=== PATIENT | female | born 1950 | race Caucasian/White ===

== ENCOUNTER 2018-11-03 14:02 | Emergency (ER) | payer MEDICARE, OTHER, SELFPAY ==
[2018-11-03 14:10] VITALS: BP 128/81; PULSE 88; RESP 18; TEMP 37.1; O2SAT 100
--- NOTE | 2018-11-03 16:42 | ED.NAVMDI ---
HPI - Nausea/Vomiting/Diarrhea <Damaris Meza PA-C - Last Filed: 11/03/18 21:51> General Chief complaint: Nausea/Vomiting/Diarrhea Stated complaint: SHINGLES WEEK AGO,PAIN HASN'T GONE AWAY Time Seen by Provider: 11/03/18 16:49 Source: patient Mode of arrival: ambulatory Limitations: no limitations History of Present Illness HPI Narrative: This 68-year-old female comes to ED secondary to left-sided shingles pain. She states that she developed left-sided upper abdomen and flank area pain 10 days ago, then rash developed 3 days later. She saw her PCP and was prescribed Valtrex of which she has 2 doses left. She states that she developed nausea on that and was prescribed Zofran she states that this helps somewhat, she has not had any vomiting, but she still has intermittent nausea. She states she has also been having occasional diarrhea and episodes where she will feel a little bit lightheaded which she thinks are related to the symptoms. She has not passed out. She denies any chest pain, dyspnea, new pain or swelling in the extremities. She has not had fever. She states there is a time correlation with the symptoms and being on the antiviral. She states that she came in today due to having persistent pain despite the rash getting better with antiviral. family history noncontributory Related Data Home Medications Medication Instructions Recorded Confirmed atorvastatin 10 mg PO BEDTIME 11/03/18 11/03/18 ipratropium bromide 2 spray INTRANASAL BID 11/03/18 11/03/18 ondansetron 4 mg TRANSLINGUAL PRN PRN 11/03/18 11/03/18 sumatriptan succinate 25 mg PO PRN PRN 11/03/18 11/03/18 valacyclovir 1 g PO [id number] 11/03/18 Previous Rx's Medication Instructions Recorded gabapentin 300 mg PO Q8H #60 cap 11/03/18 Allergies Allergy/AdvReac Type Severity Reaction Status Date / Time Sulfa (Sulfonamide Allergy Verified 11/03/18 14:12 Antibiotics) Review of Systems <Damaris Meza PA-C - Last Filed: 11/03/18 21:51> Review of Systems ROS Unobtainable: All systems reviewed & are unremarkable except as noted in HPI and below PFSH <Damaris Meza PA-C - Last Filed: 11/03/18 21:51> Medical History Elevated cholesterol (Chronic) History of migraine headaches (Chronic) History of head and neck cancer (Resolved) History of oral cancer (Resolved) Surgical History History of radical neck dissection (Resolved) Social History Smoking Status: Never smoker Social History Smoking Status: Never smoker Exam <Damaris Meza PA-C - Last Filed: 11/03/18 21:51> Narrative Exam Narrative: GENERAL APPEARANCE: Patient sitting comfortably, in no distress. HEENT: PERRL, EOMI LUNGS: Clear to auscultation bilaterally. HEART: Rate and rhythm regular without murmur, normal S1 and S2, no S3 or S4. ABDOMEN: soft, nontender, nondistended, +bowel sounds x4 quadrants DERMATOLOGIC: Erythematous patches and dry papules in the left T12 dermatomal distribution, 1 vesicle visible. No lesions elsewhere EXTREMITIES: No edema, no calf tenderness NEUROLOGIC: patient is alert and oriented with normal speech and coordination Initial Vital Signs Initial Vital Signs: Vital Signs Temperature 98.8 F 11/03/18 14:10 Pulse Rate 88 11/03/18 14:10 Respiratory Rate 18 11/03/18 14:10 Blood Pressure 128/81 11/03/18 14:10 Pulse Oximetry 100 11/03/18 14:10 <Kay Celestin DO - Last Filed: 11/06/18 09:19> Initial Vital Signs Initial Vital Signs: Vital Signs Temperature 98.8 F 11/03/18 14:10 Pulse Rate 88 11/03/18 14:10 Respiratory Rate 18 11/03/18 14:10 Blood Pressure 128/81 11/03/18 14:10 Pulse Oximetry 100 11/03/18 14:10 Course <Damaris Meza PA-C - Last Filed: 11/03/18 21:51> Vital Signs - 8 hr 11/03/18 14:10 11/03/18 17:23 Temperature 98.8 F Pulse Rate 88 72 Respiratory Rate 18 16 Blood Pressure 128/81 124/68 Pulse Oximetry 100 99 <DO Con Rubio Last Filed: 11/06/18 09:19> Vital Signs - 8 hr 11/03/18 14:10 11/03/18 17:23 Temperature 98.8 F Pulse Rate 88 72 Respiratory Rate 18 16 Blood Pressure 128/81 124/68 Pulse Oximetry 100 99 Discharge Plan Departure Patient Disposition: Home Clinical Impression: Nausea Shingles Qualifiers: Herpes zoster complications: without complications Qualified Code(s): B02.9 - Zoster without complications Discharge Date/Time: 11/03/18 17:23 Interventions: ED Discharge Assessment Last Done: 11/03/18 17:23 Instructions: DI for Shingles, DI for Nausea -- Adult Activity Restrictions/Additional Instructions: please continue your shingles medicine since you only have a couple more doses to take. Take the antinausea medicine that you would prescribed about an hour before. try to eat a small amount of bland food (i.e. a few crackers, applesauce, or a banana for example) every hour or 2 to keep a little food in your stomach as this can help with the nausea, and drink plenty of clear fluids. you can take ertj-jat-ohraayl Imodium if needed for loose stools. I suspect the symptoms will resolve within about 24 hr after finishing your antiviral medication. You can continue taking or Tylenol and ibuprofen, but in addition add the gabapentin that I have prescribed for you, 1 cap every 8 hr. You can increase to 2 at bedtime if needed. Please make sure you follow-up with your PCP in the next few days to see if this is helping you and see whether the dose needs to be adjusted or whether you need other pain medicines added. It does look like the rash is improving. Please return as we talked about if you have any acutely worsening symptoms, or new symptoms such as protracted vomiting, or feeling more weak or dizzy. Prescriptions: New gabapentin 300 mg capsule 300 mg PO Q8H Qty: 60 RF: 0 No Action atorvastatin 10 mg tablet 10 mg PO BEDTIME RF: 0 valacyclovir 1 gram tablet 1 g PO [id number] RF: 0 sumatriptan succinate 25 mg tablet 25 mg PO PRN PRN (Reason: Migraine Headache) RF: 0 ondansetron 4 mg tablet,disintegrating 4 mg Translingual PRN PRN (Reason: Nausea And Vomiting) RF: 0 ipratropium bromide 0.03 % spray,non-aerosol 2 spray Intranasal BID RF: 0 Referrals: Jason Traore MD [Primary Care Provider] - <Kay Celestin DO - Last Filed: 11/06/18 09:19> Cosign ED Attending Cosignature Attestation: I was immediately available in the department for consultation. Documentation has been reviewed. I agree with assessment and plan.
--- NOTE | 2018-11-03 17:21 | PC.NURSE ---
Patient reports nausea which she thinks is associated to her antiviral medications she is taking for her shingles. Patient having ongoing nerve pain.
[2018-11-03 17:23] VITALS: BP 124/68; PULSE 72; RESP 16; O2SAT 99
== END 2018-11-03 17:23 | disposition home or self-care (01) ==
PROVIDERS: Emergency Provider Internal Medicine; PCP Family Medicine
DX: R11.0 Nausea (principal); B02.9 Zoster without complications
CPT/HCPCS: 99282

== ENCOUNTER → 2019-06-06 15:12 | Outpatient (ROUT) | payer SELFPAY ==
[2019-06-07 00:31] LABS: INR 2.3 (0.9-1.3); Prothrombin Time 26.8 SECONDS (10.1-12.7)
== END ==
PROVIDERS: PCP Family Medicine; Visit Provider Internal Medicine
DX: I48.91 Unspecified atrial fibrillation (principal); Z79.899 Other long term (current) drug therapy
CPT/HCPCS: 85610

== ENCOUNTER → 2019-06-15 10:17 | Outpatient (ROUT) | payer MEDICARE, OTHER, SELFPAY ==
[2019-06-15 10:31] LABS: INR 1.4 (0.9-1.3); Prothrombin Time 16.3 SECONDS (10.1-12.7)
== END ==
PROVIDERS: PCP Family Medicine; Visit Provider Internal Medicine
DX: E78.5 Hyperlipidemia, unspecified (principal)
CPT/HCPCS: 85610

== ENCOUNTER → 2019-08-24 09:07 | Outpatient (CLI) | payer MEDICARE, OTHER, SELFPAY ==
--- NOTE | 2019-08-24 | DI.ECHO.S_ITS ---
[facility] +---------+ : : [address] : : : : [id number] : : : : Phone: [phone]+ Echocardiogram Report + + :Name: HAYLEE RASMUSSEN Study Date: 08/24/2019 Height: 66 in : :[facility] Exam Location: [facility] Weight: 121 lb : : Gender: Female BSA: 1.6 m2 : :: 1950 Age: 69 yrs BP: 112/62 mmHg: :Reason For Study: Atrial Fibrillation : :Ordering Physician: Matias : :Genevieve Iraheta Performed By: Ileana Ann : :Referring: MATIAS IRAHETA : + + Interpretation Summary 1) Normal left ventricular thickness, size, and systolic function (EF about 55%). 2) The right ventricle is normal size. Right ventricular systolic function is mildly reduced. 3) There is a prosthetic aortic valve that opens well and has expected gradient across it (mean gradient 3.5mmHg). 4) Linear echoes with the aorta are suggestive of dissection of the descending aorta. 5) No prior Echo available for comparison. Procedure: A two-dimensional transthoracic echocardiogram with color flow and Doppler was performed. The study quality was technically adequate. There is no prior echocardiogram noted for this patient. Some imaging windows were difficult to obtain due to patient body habitus and recent surgery. The patient was in normal sinus rhythm during the exam. Left Ventricle: The left ventricle is normal in size. Left ventricular wall thickness is normal. Left ventricular ejection fraction is estimated to be 55 +/- 5%. Septal motion is consistent with post-operative state. Right Ventricle: The right ventricle is normal size. Right ventricular systolic function is mildly reduced. Atria: The left atrium is mildly dilated. Right atrial size is normal. The interatrial septum is intact with no evidence for an atrial septal defect. Mitral Valve: The mitral valve is normal in structure and function. There is trace mitral regurgitation. Aortic Valve: There is a prosthetic aortic valve. The gradients through the prosthetic aortic valve are within the normal range for this type of valve. No aortic regurgitation is present. Tricuspid Valve: The tricuspid valve is normal in structure and function. There is mild tricuspid regurgitation. The right ventricular systolic pressure is estimated to be at least 24 mmHg based on an estimated right atrial pressure of 3 mm Hg. Pulmonic Valve: The pulmonic valve is not well seen, but is grossly normal. There is a trace or physiologic amount of pulmonic regurgitation. Great Vessels: The ascending aorta could not be visualized. The aortic arch is normal in size. Aortic dissection is known per medical record. Linear echoes with the aorta are suggestive of dissection of the descending aorta. The IVC is of normal diameter and collapses greater than 50% with a sniff. This suggests a low right atrial pressure of 3 mm Hg. Pericardium/ Pleura There is no pericardial effusion. There is an anterior echo-free space consistent with a fat pad. There is no pleural effusion. MMode/2D Measurements & Calculations LVIDd: 4.2 cm LVOT diam: 1.9 cm LVIDs: 3.1 cm Ao Arch Diam (Prox Trans): 2.5 cm FS: 27.6 % IVSd: 0.83 cm LVPWd: 1.1 cm LV ortega. diameter/BSA (cm/m^2): 2.6 LV sys. diameter/BSA (cm/m^2): 1.9 LA A2 area: 17.0 cm2 RA long axis: 4.2 cm LA A4 area: 18.6 cm2 RA area: 11.9 cm2 LA length (vol): 4.7 cm RA vol: 28.6 ml LA vol: 57.1 ml RA : 17.7 ml/m2 LA vol index: 35.4 ml/m2 TAPSE: 1.5 cm Doppler Measurements & Calculations Ao V2 max: 135.9 cm/sec LVOT Max Miles: 86.3 cm/sec Ao V2 mean: 88.2 cm/sec LV V1 max P.0 mmHg Ao max P.4 mmHg LV V1 VTI: 15.8 cm Ao mean P.5 mmHg DANA(I,D): 2.2 cm2 Ao V2 VTI: 21.5 cm DANA(V,D): 1.9 cm2 sev ratio: 0.74 DANA indexed to BSA (cm^2/m^2): 1.4 MV E max miles: 53.4 cm/sec TR max miles: 227.4 cm/sec MV A max miles: 69.7 cm/sec TR max P.7 mmHg MV E/A: 0.77 PA V2 max: 69.5 cm/sec MV dec time: 0.20 sec PA V2 mean: 51.6 cm/sec PA mean P.1 mmHg PA pr(Accel): 45.7 mmHg SV(LVOT): 47.1 ml Reading Physician:05:04 PM
== END ==
PROVIDERS: PCP Family Medicine; Visit Provider Internal Medicine Cardiovascular Disease
DX: I07.1 Rheumatic tricuspid insufficiency (principal); I48.19 Other persistent atrial fibrillation; Z95.2 Presence of prosthetic heart valve
CPT/HCPCS: 93306

== ENCOUNTER 2019-08-31 15:30 | Outpatient (RCR) | payer MEDICARE, OTHER, SELFPAY ==
--- NOTE | 2019-07-09 13:48 | ST.IPCSEOM ---
Visit Care Team Role Provider Type Jason Traore MD Attending Provider Non-Staff Primary Care Provider Specialty: Medical Address: [address] [place] [address] [address], [place], [address] Email: Current Diagnoses Malignant neoplasm of tongue, unspecified (07/06/19) Past Medical History (Last Updated 11/03/18 @ 17:17 by Damaris Meza PA-C) Elevated cholesterol (Chronic Medical) History of head and neck cancer (Resolved Medical) History of migraine headaches (Chronic Medical) History of oral cancer (Resolved Medical) Speech-Language Pathology Swallow Evaluation MA[employer] Clinical Swallow Evaluation Start: 07/08/19 17:23 Freq: Status: Active Protocol: Document 07/06/19 17:24 LNK (Rec: 07/08/19 18:04 LNK [email or web address]) Clinical Swallow Evaluation Session Time Visit Start Time 14:30 Visit Stop Time 15:30 Total Visit Minutes 60 Visit Information Plan of Care Dates 07/06/19-10/06/[address] Traore/Dr. Sesay Reason for Referral dysphagia Setting Assessment Location Outpatient Care Visit Type Note Type Initial Evaluation Next Note Type Next Note Type Treatment Note Patient Information Identification Type Name,Picture History Nicole Valenzuela was seen fora clinical swallowing examination at the referral of her physician, Dr. Traore. Little information was available via medical records. 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 Beginning in 2009, she had a small lesion removed from the left side of her tongue. In 2011, she had the left side of her tongue and lymph nodes removed secondary to cancer. She received radiation therapy to her neck and lymph nodes following her resection. She had proton radiation therapy for her thyroid. In 2016, she had thyroid cancer that required surgery. While in surgery, she had a heart attack requiring emergency surgery (05/09/19). Nicole reported that her left vocal fold was negatively impacted ( paralized?) during her procedure. Her vocal fold has been treated with injections to approximate the left vocal fold for voicing and/or swallowing. Following her thyroid surgery and the heart attack, Nicole had a Modified Barium Swallow Study on 05/18/19 , which she failed and on 05/22 she had a PEG tube placed. Nicole feels she has improved and would like to try to get back to PO intake. Subjective Observations Nicole remarked that she felt the MBS and PEG tube placement were premature. Evaluation Oral Phase Comments Pt presented with a small toungu which is limited in range of motion. Her dentition is natural and in good health and hygeine. OM assessment noted good labial, buccal and jaw strength. Her velopharynx appeared to be deep. Tongue ROM strength and speed were limited. Her speech was intelligible. She spoke slowly, with a hypernasal resonance. Pharyngeal Phase Comments PO intake was not attempted due to high risk for silent aspiration. Nicole reported that she has been sucking on ice chips at home with no coughing/choking. She was instructed to monitor for chest congestion and/or fever due to silent aspiration risk. Observations of her neck area revealed stiff and hard muscle and skin tissue secondary to the radiation therapies. Her neck ROM is limited. PT was recommended for myofacial release therapy for her neck area. Findings Impressions Nicole Valenzueal is highly motivated to eat again. Therapy with oropharyngeal exercises was initiated. Tongue base retraction and the Shaker technique were demonstrated and practiced as a starting point. These exercises are designed to aid in hyolaryngeal elevation and tongue base strength and ROM. Following 1-2 months of therapeutic exercises, a repeat MBS is recommended to determine safety for PO intake . Diet Recommendations Liquids Order NPO Treatment Plan Therapy Recommendations Weekly dysphagia therapy Dysphagia Goals Pt will regularly practice swallow exercises daily with repetitions at no less than 100/day. Pt will participate in safe swallow strategies for swallowing with trial PO. Referrals/Other Recommended Referrals Physical Therapy
--- NOTE | 2019-07-24 13:26 | ST.OPTN ---
Visit Care Team Role Provider Type Jason Traore MD Attending Provider Non-Staff Primary Care Provider Address: [address] [place] [address] [address], [place], [address] [employer] Treatment Note [employer] Treatment Note Start: 07/08/19 17:23 Freq: Status: Active Protocol: Document 07/24/19 13:02 LNK (Rec: 07/24/19 13:25 LNK [email or web address]) Speech Pathology Treatment Note Session Time Visit Start Time 11:30 Visit Stop Time 12:15 Total Visit Minutes 45 Visit Information Visit Number 2 Plan of Care Dates 07/06/19-10/06/19 Setting Treatment Setting Outpatient Care Visit Type Note Type Treatment Note Next Note Type Next Note Type Treatment Note General Information General Information Nicole Valenzuela was seen for a clinical swallowing examination at the referral of her physician, Dr. Traore. Little information was available via medical records. 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 Beginning in 2009, she had a small lesion removed from the left side of her tongue. In 2011, she had the left side of her tongue and lymph nodes removed secondary to cancer. She received radiation therapy to her neck and lymph nodes following her resection. She had proton radiation therapy for her thyroid. In 2016, she had thyroid cancer that required surgery. Nicole reported that her left vocal fold was negatively impacted ( paralized?) during her procedure. Her vocal fold has been treated with injections to approximate the left vocal fold for voicing and/or swallowing. Nicole had a Modified Barium Swallow Study on 05/18/19, which she failed and on 05/22/19 she had a PEG tube placed. Nicole feels she has improved and would like to try to get back to PO intake. [ End Subjective Identification Type Name Identification Reconciled With Intake Sheet Others Present Family Chief Complaint(s) Swallowing,Voice Rehab Expectation/Goals: Patient Goals To be able to eat Patient Knowledge/Awareness of [employer] Role Excellent in Treatment Objective Short Term Goals Nicole will practice swallowing/ linguapharyngeal exercises as directed in order to improve ROM, control, and strength as tolerated Nicole will practice vocal adduction exercises to assist in medialization of weak vocal fold and increase ROM of healthy vocal fold to achieve adduction and adequate airway protection. An MBSS will be performed to determine safety for PO intake and POC Shelter Goals Nicole will be able to safely tolerate PO intake without s/ sx of aspiration Treatment Activities Reviewed with Nicole her shaker and elevated tongue exercises. She c/o her neck aching, so the number of repetitions was reduced to as tolerated. Introduction of lingual exercises for tongue tip elevation and elevation of the posterior of the tongue. Initially to do these exercises tolerated. Recommended that she continue previous exercises. Will extend appointments out to every other week as progress is expected to be slow initially. Assessment Patient Response to Treatment Excellent Rehab Potential Fair Impairments Identified Dysphagia,Vocal Quality Reviewed with Patient Goals,Home Exercise Program Patient/Caregiver Understanding Excellent Plan Amount of Therapy Recommended Other Comment every other week Length of Session 45 Minutes Provided Patient/Caregiver Instruction Home Exercise Program, Questions/Concerns
--- NOTE | 2019-08-05 11:08 | ST.IPDYTX ---
Visit Care Team Role Provider Type Jason Traore MD Attending Provider Non-Staff Primary Care Provider Specialty: Medical Address: [address] [place] [address] [id number], [place], [address] Email: PROFESSIONAL SKATER Dysphagia Treatment PROFESSIONAL SKATER Dysphagia Treatment Start: 07/08/19 17:23 Freq: Status: Active Protocol: Document 07/23/19 10:34 LNK (Rec: 08/05/19 11:08 LNK [email or web address]) Dysphagia Treatment Session Time Visit Start Time 11:30 Visit Stop Time 12:15 Total Visit Minutes 45 Visit Information Visit Number 2 Plan of Care Dates 07/06/19-10/06/19 Setting Assessment Location Outpatient Care Visit Type Note Type Treatment Note Next Note Type Next Note Type Treatment Note Patient Information Identification Type Name,Picture Subjective Observations Nicole Valenzuela was seen for a clinical swallowing examination at the referral of her physician, Dr. Traore. Little information was available via medical records. 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 Beginning in 2009, she had a small lesion removed from the left side of her tongue. In 2011, she had the left side of her tongue and lymph nodes removed secondary to cancer. She received radiation therapy to her neck and lymph nodes following her resection. She had proton radiation therapy for her thyroid. In 2016, she had thyroid cancer that required surgery. 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 Her vocal fold has been treated with injections to approximate the left vocal fold for voicing and/or swallowing. Nicole had a Modified Barium Swallow Study on 05/18/19, which she failed and on 05/22/19 she had a PEG tube placed. Nicole feels she has improved and would like to try to get back to PO intake. Treatment Treatment Activities Reviewed with Nicole her shaker and elevated tongue exercises. She c/o her neck aching, so the number of repetitions was reduced to as tolerated. Introduction of lingual exercises for tongue tip elevation and elevation of the posterior of the tongue. Initially to do these exercises as tolerated. Recommended that she continue previous exercises. Will extend appointments out to every other week as progress is expected to be slow initially. [ End ] Assessment Patient Response to Treatment Excellent Rehab Potential Fair Treatment Plan Dysphagia Goals Nicole will practice swallowing/ linguapharyngeal exercises as directed in order to improve ROM, control, and strength as tolerated Nicole will practice vocal adduction exercises to assist in medialization of weak vocal fold and increase ROM of healthy vocal fold to achieve adduction and adequate airway protection. An MBSS will be performed to determine safety for PO intake and POC
--- NOTE | 2019-08-05 11:17 | ST.IPDYTX ---
Visit Care Team Role Provider Type Jason Traore MD Attending Provider Non-Staff Primary Care Provider Specialty: Medical Address: [address] [place] [address] [id number], [place], [address] Email: CARE DIRECTOR Dysphagia Treatment CARE DIRECTOR Dysphagia Treatment Start: 07/08/19 17:23 Freq: Status: Active Protocol: Document 08/05/19 11:10 LNK (Rec: 08/05/19 11:16 LNK [email or web address]) Dysphagia Treatment Session Time Visit Start Time 11:30 Visit Stop Time 12:15 Total Visit Minutes 45 Visit Information Visit Number 3 Plan of Care Dates 07/06/19-10/06/19 Setting Assessment Location Outpatient Care Visit Type Note Type Treatment Note Next Note Type Next Note Type Treatment Note Patient Information Identification Type Name Subjective Observations Nicole Valenzuela was seen for a clinical swallowing examination at the referral of her physician, Dr. Traore. Little information was available via medical records. 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 Beginning in 2009, she had a small lesion removed from the left side of her tongue. In 2011, she had the left side of her tongue and lymph nodes removed secondary to cancer. She received radiation therapy to her neck and lymph nodes following her resection. She had proton radiation therapy for her thyroid. In 2016, she had thyroid cancer that required surgery. 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 Her vocal fold has been treated with injections to approximate the left vocal fold for voicing and/or swallowing. Nicole had a Modified Barium Swallow Study on 05/18/19, which she failed and on 05/22/19 she had a PEG tube placed. Nicole feels she has improved and would like to try to get back to PO intake. Treatment Treatment Activities Reviewed with Nicole her shaker and elevated tongue exercises. She c/o her neck aching, so the number of repetitions was reduced to as tolerated. Introduction of lingual exercises for tongue tip elevation and elevation of the posterior of the tongue. Initially to do these exercises as tolerated. Recommended that she continue all exercises. Added a supersupraglottic swallow for small amounts of water (Todd water protocol). Trial with water resulted in 1/2 swallows resulting in strong cough. Will extend appointments out to every 4 week as progress is expected to be slow initially . [ End ] Assessment Patient Response to Treatment Excellent Rehab Potential Fair Assessment of Improvement Nicole Valenzuela is highly motivated to eat again. Therapy with oropharyngeal exercises was initiated. Tongue base retraction and the Shaker technique were demonstrated and practiced as a starting point. These exercises are designed to aid in hyolaryngeal elevation and tongue base strength and ROM. Following 1-2 months of therapeutic exercises, a repeat MBS is recommended to determine safety for PO intake . Diet Recommendations Liquids Order NPO Treatment Plan Therapy Recommendations Weekly dysphagia therapy Dysphagia Goals Nicole will practice swallowing/ linguapharyngeal exercises as directed in order to improve ROM, control, and strength as tolerated Nicole will practice vocal adduction exercises to assist in medialization of weak vocal fold and increase ROM of healthy vocal fold to achieve adduction and adequate airway protection. An MBSS will be performed to determine safety for PO intake and POC Referrals/Other Recommended Referrals Physical Therapy
--- NOTE | 2019-08-31 16:25 | ST.IPDYTX ---
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 Dysphagia Treatment [employer]IMBLE [employer] OPERATOR Dysphagia Treatment Start: 07/08/19 17:23 Freq: Status: Active Protocol: Document 08/31/19 15:18 LNK (Rec: 08/31/19 16:22 [email or web address]) Dysphagia Treatment Session Time Visit Start Time 13:30 Visit Stop Time 14:10 Total Visit Minutes 40 Visit Information Visit Number 4 Plan of Care Dates 09/09/19-12/09/19 Setting Assessment Location Outpatient Care Visit Type Note Type Progress Note Next Note Type Next Note Type Treatment Note Patient Information Identification Type Name Subjective Observations Nicole Valenzuela was seen for a clinical swallowing examination at the referral of her physician, Dr. Traore. Little information was available via medical records. 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 Beginning in 2009, she had a small lesion removed from the left side of her tongue. In 2011, she had the left side of her tongue and lymph nodes removed secondary to cancer. She received radiation therapy to her neck and lymph nodes following her resection. She had proton radiation therapy for her thyroid. In 2016, she had thyroid cancer that required surgery. 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 Her vocal fold has been treated with injections to approximate the left vocal fold for voicing and/or swallowing. Nicole had a Modified Barium Swallow Study on 05/18/19, which she failed and on 05/22/19 she had a PEG tube placed. Nicole feels she has improved and would like to try to get back to PO intake. Treatment Liquids Trialed Thin Administration Type Cup Single Sip Pharyngeal Strategies Sitting Upright (90 deg),Turn Head Left,Chin Tuck, Supraglottic Swallow Treatment Activities Reviewed with Nicole the shaker and elevated tongue exercises as well as the surpraglottic swallow method. She has been attending PT for myofacial release of the left side of her neck. Her PT and Nicole report that improvement has been noted in tissue flexibility. Nicole saw Dr. Escalante, ENT at the [facility]. He injected her left vocal fold to approximate it closer to midline in order to aid in glottal closure. Since that procedure, Nicole reports greater ease with swallowing small amounts of thin liquids. Trials today with Thin quids using supraglottic swallow method and turning head to left and looking at her left elbow , she was able to swallow x4 without overt s/sx of aspiration. OM exercises for lingual ROM continuing with greater ease in tongue tip elevation. Recommended that she continue all exercises and safe swallow strategies with small amounts of water (Todd water protocol). Will follow up with pt in 2 weeks and plan to have repeat MBS at the end of September to determine aspiration risk and aid in POC development. [ End ] Assessment Patient Response to Treatment Excellent Rehab Potential Fair Assessment of Improvement Nicole Valenzuela is highly motivated to eat again. Therapy with oropharyngeal exercises was initiated. Tongue base retraction and the Shaker technique were demonstrated and practiced as a starting point. These exercises are designed to aid in hyolaryngeal elevation and tongue base strength and ROM. Following 1-2 months of therapeutic exercises, a repeat MBS is recommended to determine safety for PO intake . Diet Recommendations Liquids Order NPO Aspiration Precautions Recommended Precautions Upright at 90 Degrees,Small Bites/Sips,Left Head Tilt, Supraglottic Swallow Treatment Plan Therapy Recommendations Biweekly dysphagia therapy MBS at end September 2019 Dysphagia Goals Nicole will continue to practice swallowing/linguapharyngeal exercises as directed in order to improve ROM, control, and strength as tolerated Nicole will practice vocal adduction exercises to assist in medialization of weak vocal fold and increase ROM of healthy vocal fold to achieve adduction and adequate airway protection. An MBSS will be performed to determine safety for PO intake and POC Referrals/Other Recommended Referrals Physical Therapy
--- NOTE | 2019-08-31 16:26 | ST.OPPOC ---
Visit Care Team Role Provider Type Jason Traore MD Attending Provider Non-Staff Primary Care Provider Address: [address] [place] [address] [address]ique [address], [place], [address] Speech Pathology Plan of Care General Information Nicole Valenzuela was seen for a clinical swallowing examination at the referral of her physician, Dr Francisca Traore. Little information was available via medical records. 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 Beginning in 2009, she had a small lesion removed from the left side of her tongue. In 2011, she had the left side of her tongue and lymph nodes removed secondary to cancer. She received radiation therapy to her neck and lymph nodes following her resection. She had proton radiation therapy for her thyroid . In 2016, she had thyroid cancer that required surgery. Nicole reported that her left vocal fold was negatively impacted (paralized?) during her procedure. Her vocal fold has been treated with injections to approximate the left vocal fold for voicing and/or swallowing. Nicole had a Modified Barium Swallow Study on 05/18/19, which she failed and on 05/22/19 she had a PEG tube placed. Nicole feels she has improved and would like to try to get back to PO intake. [ End Visit Number 2 Plan of Care Dates 09/09/19-12/09/19 Chief Complaint(s) Swallowing,Voice Rehabilitation Expectation/ To be able to eat Goals: Patient Goals Patient Knowledge/Awareness of Excellent TOURIST AGENT Role in Treatment Short Term Goals Nicole will practice swallowing/linguapharyngeal exercises as directed in order to improve ROM, control, and strength as tolerated Nicole will practice vocal adduction exercises to assist in medialization of weak vocal fold and increase ROM of healthy vocal fold to achieve adduction and adequate airway protection. 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 She c/o her neck aching, sothe number of repetitions was reduced to as tolerated. Introduction of lingual exercises for tongue tip elevation and elevation of the posterior of the tongue. Initially to do these exercises as tolerated. Recommended that she continue previous exercises. Will extend appointments out to every other week as progress is expected to be slow initially. Rehabilitation Potential Fair Impairments Identified Dysphagia,Vocal Quality Reviewed with Patient Goals,Home Exercise Program Patient Understanding Excellent Length of Therapy Recommended Other Comment every other week Treatment Duration 45 Minutes Please Sign and Return: I have reviewed this Plan of Care and certify that the skilled therapy services above are required to meet the patient?s needs. Physician Signature Date Printed Name and Credentials Clinical Instructor Signature Printed Name and Credentials
--- NOTE | 2019-11-09 17:54 | ST.IPDYTX ---
Visit Care Team Role Provider Type Jason Traore MD Attending Provider Non-Staff Primary Care Provider Specialty: Medical Address: [address] [place] [address] [id number], [place], [address] Email: [employer] Dysphagia Treatment [employer] Dysphagia Treatment Start: 07/08/19 17:23 Freq: Status: Active Protocol: Document 11/09/19 17:51 LNK (Rec: 11/09/19 17:53 LNK [email or web address]) Dysphagia Treatment Visit Type Note Type Discharge Summary Patient Information Subjective Observations Nicole Valenzuela was seen for a clinical swallowing examination at the referral of her physician, Dr. Traore. Little information was available via medical records. 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 Beginning in 2009, she had a small lesion removed from the left side of her tongue. In 2011, she had the left side of her tongue and lymph nodes removed secondary to cancer. She received radiation therapy to her neck and lymph nodes following her resection. She had proton radiation therapy for her thyroid. In 2016, she had thyroid cancer that required surgery. 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 Her vocal fold has been treated with injections to approximate the left vocal fold for voicing and/or swallowing. Nicole had a Modified Barium Swallow Study on 05/18/19, which she failed and on 05/22/19 she had a PEG tube placed. Nicole feels she has improved and would like to try to get back to PO intake. Assessment Assessment of Improvement Nicole has not returned for continued dyphsgia therapy since 08/31/19 Treatment Plan Appropriate for Continued Therapy No Therapy Recommendations Will discharge pt from active status at this time
== END 2019-11-10 13:08 ==
LOC: SP 15:30
PROVIDERS: PCP Family Medicine; Visit Provider Family Medicine
DX: C02.9 Malignant neoplasm of tongue, unspecified (principal)
CPT/HCPCS: 92526; 92610

== ENCOUNTER → 2019-09-25 12:53 | Outpatient (CLI) | payer MEDICARE, OTHER, SELFPAY ==
--- NOTE | 2019-09-25 | DI.CT.S_ITS ---
PROCEDURE: CT SOFT TISSUE NECK W CON INDICATIONS: Malignant neoplasm of head, face and neck TECHNIQUE: After the administration of intravenous contrast, 3.0 mm axial sections acquired from the sella to the aortic arch. Additional oblique axial 3.0 mm sections acquired through the pharynx. 3 mm thick coronal and sagittal reformats were generated. For radiation dose reduction, the following was used: automated exposure control. COMPARISON: Outside Facility, RG, CTA CHEST ABDOMEN PELVIS ANGIO, 07/01/2019, 13:00. Outside Facility, RG, CT SOFT TISSUE NECK WITH CONTRAST, 05/07/2018, 8:58. [facility], CT, CT CHEST ABD PEL W CON, 09/25/2019, 13:29. Outside Facility, RG, CT SOFT TISSUE NECK WITH CONTRAST, 10/02/2017, 10:00. FINDINGS: Image quality: Excellent. Lymph nodes: No enlarged lymph nodes seen throughout the neck. Vessels: Visualized vasculature appears patent. Neck spaces: Surgical changes reflecting left partial hemiglossectomy and right neck dissection are identified. Vocal cord asymmetry persists suggestive of partial paralysis. Glands: The parotid and submandibular glands appear normal. In interval since the prior exam, there appears to be right hemithyroidectomy. Within the surgical bed, amorphous soft tissue density is present which surrounds the adjacent carotid artery which is new compared to prior exam. There is soft tissue density surrounding the region of the anterior sternocleidomastoid musculature. Soft tissue density also extends anteriorly at this level to the subcutaneous fat anterior to the trachea.. Miscellaneous: Visualized brain and orbits appear normal. There is a partially visualized 50 mm AP by 60 mm transverse left upper lobe mass. There is partially visualized dissection from the descending thoracic aorta extending to the aortic arch. It is noted this was present on 07/01/19. It is incompletely included within the [id number] on current exam. However, it appears to have increased in size compared to prior exam. Superficial soft tissues appear normal. Bones: Previously identified lucency and cortical erosion of the left mandibular alveolar ridge is again noted, suggestive of osteonecrosis. Surgical changes reflecting suspected left marginal mandibulotomy are noted. Visualized sinuses and mastoids appear unremarkable. IMPRESSION: 1. Surgical changes reflecting left hemiglossectomy and right neck dissection are identified. In addition, there is been interval right thyroidectomy. 2. Interval soft tissue density surrounding the right anterior sternocleidomastoid musculature at the level of the surgical thyroid bed extending anteriorly as described above. This could represent postsurgical change. However, recommend continued or followup of this region as recurrent metastatic disease cannot be excluded. 3. Partially visualized left upper lobe mass. Please see CT chest abdomen pelvis report for further details. 4. Incompletely visualized descending thoracic and aortic arch dissection, previously present on 07/01/19. Please see CT chest and pelvis report of 09/25/19 for further details. Dictated by: Edel Arreola M.D. on 09/25/2019 at 16:40 Approved by: Edel Arreola M.D. on 09/25/2019 at 16:52
--- NOTE | 2019-09-25 13:04 | DI.CT.S_ITS ---
PROCEDURE: CT CHEST ABD PEL W CON INDICATIONS: Malignant neoplasm of head, face and neck TECHNIQUE: After the administration of intravenous contrast, 5 mm thick sections acquired from the lung apices to the symphysis. 5 mm coronal and sagittal reformats were performed, with additional 7 mm MIP reformats through the lungs. For radiation dose reduction, the following was used: automated exposure control, adjustment of mA and/or kV according to patient size. COMPARISON: Outside Facility, RG, CTA CHEST ABDOMEN PELVIS ANGIO, 07/01/2019, 13:00. Outside Facility, RG, CT THORAX W/O CONTRAST, 10/02/2017, 10:06. FINDINGS: Image quality: Excellent. CHEST: Lungs and pleura: Focal fibrotic changes are present along the anterior aspect of the right upper lobe suggesting radiation fibrosis. An irregularly marginated centrally hypodense mass or fluid collection is present within the right upper lobe which measures 4.3 x 6.3 x 4.8 cm. This is increased in size when compared with the prior CT dated 07/01/19 where this measured 3.3 x 5.3 x 3.3 cm. This region is decreased in density centrally when compared with the prior study suggesting central necrosis. Pulmonary scar is present along the inferior margin of this lesion. Platelike atelectasis is present at the posterior right lung base. No acute air space opacities. No pulmonary nodules or pleural effusion. No pneumothorax. A calcified granuloma is present within the lingula. Mediastinum: Heart size is normal. No pericardial effusion. No mediastinal or hilar adenopathy by size criteria. Repair at the aortic valve is redemonstrated. Type A aortic dissection is redemonstrated and appears similar in extent to the study dated 07/01/19. As before, this extends into the left carotid and subclavian arteries. The true and false lumens are similar in appearance. On the study dated 07/01/19, the carotid appeared thrombosed superior to the dissection; however on the current study there is flow within the superior visualized portions of the left common carotid artery. It is unclear whether this originates from the true or false lumen. Esophagus is normal in caliber. No hiatal hernia. Chest wall: Patient is status post median sternotomy. No axillary or supraclavicular adenopathy by size criteria. The right thyroid lobe is surgically absent. ABDOMEN: Solid organs: Liver is normal in size and enhancement. Multiple low density circumscribed lesions are present throughout the liver consistent with hepatic cysts. Gallbladder is unremarkable. Biliary system is non dilated. Pancreas enhances normally. Spleen is normal in size and enhancement. No adrenal nodules. Kidneys demonstrate normal size and enhancement, without hydronephrosis. Peritoneum and bowel: A gastrostomy tube is present within the gastric fundus. Bowel loops demonstrate normal wall thickness and caliber. There are scattered sigmoid diverticula. No evidence for diverticulitis. No free fluid or air. Nodes and vessels: No retroperitoneal or mesenteric adenopathy by size criteria. Ascending aortic dissection is redemonstrated. Probable fenestration is visualized at the level of the renal veins, as before. Miscellaneous: No ventral hernias. PELVIS: Genitourinary: Bladder wall thickness is normal. The uterus and ovaries are grossly unremarkable. Miscellaneous: No inguinal hernias or adenopathy. Bones: No suspicious bony lesions. No vertebral body compression fractures. IMPRESSION: 1. Increased size of the right upper lobe pulmonary mass when compared with the prior CT dated 07/01/19. However, the central aspect of this mass is now hypodense suggesting central necrosis or a fluid collection. Differential considerations include response to therapy and progression of disease. Given the hyperdense nature of the mass, tissue necrosis in response to therapy is favored. However, short interval followup is recommended. 2. Type A aortic dissection redemonstrated. There findings suggesting recanalization of the midportion of the left common carotid artery which appeared occluded on the prior CTA from 07/01/19. Findings are otherwise unchanged. 3. No findings to suggest new distant metastasis. Dictated by: Hollie Jordan M.D. on 09/25/2019 at 15:51 Approved by: Hollie Jordan M.D. on 09/28/2019 at 16:50
[2019-09-25 13:26] LABS: BUN Creatinine Ratio 31.3 (6-22); Blood Urea Nitrogen 25 mg/dL (7-17); Calcium 9.6 mg/dL (8.4-10.2); Carbon Dioxide 32 mmol/L (22-32); Chloride 95 mmol/L (98-107); Estimated Glomerular Filt Rate > 60.0 mL/min (>60); Glucose 108 mg/dL (80-110); HEMOLYSIS < 15 (0-50); Potassium 4.5 mmol/L (3.4-5.1); Sodium 137 mmol/L (137-145)
== END ==
PROVIDERS: PCP Family Medicine; Visit Provider Otolaryngology Plastic Surgery within the Head & Neck
DX: C76.0 Malignant neoplasm of head, face and neck (principal); I71.01 Dissection of thoracic aorta; J98.4 Other disorders of lung; K57.30 Diverticulosis of large intestine without perforation or abscess without bleeding; Z93.1 Gastrostomy status
CPT/HCPCS: 36415; 70491; 71260; 74177; 80048; 82565; 84520; Q9967

== ENCOUNTER 2019-11-03 10:30 | Outpatient (RCR) | payer MEDICARE, OTHER, SELFPAY ==
--- NOTE | 2019-08-03 16:03 | PT.OIE ---
Current Diagnoses Cervicalgia (08/03/19) Past Medical History (Last Updated 11/03/18 @ 17:17 by Damaris Meza PA-C) Elevated cholesterol (Chronic) History of head and neck cancer (Resolved) History of migraine headaches (Chronic) History of oral cancer (Resolved) Past Surgical History (Last Updated 11/03/18 @ 17:17 by Damaris Meza PA-C) History of radical neck dissection (Resolved) Visit Care Team Role Provider Type Jason Traore MD Attending Provider Non-Staff Primary Care Provider Specialty: Medical Address: [address] [place] [address] [address], [place], [address] Email: Physical Therapy Initial Evaluation PT-OP-A Visit Information Start: 08/03/19 07:28 Freq: Status: Active Protocol: Document 08/03/19 11:15 AMB (Rec: 08/03/19 13:02 AMB [email or web address]) Out-Patient Physical Therapy Visit Information Visit Information Visit Type Initial Evaluation Visit Start Time 11:15 Visit Stop Time 12:00 Total Visit Minutes 45 Visit Number 1 PT-OP-B Current Condition Start: 08/03/19 07:28 Freq: Status: Active Protocol: Document 08/03/19 11:15 AMB (Rec: 08/03/19 13:02 AMB [email or web address]) Current Condition History of Current Condition Onset Date April 28, 2019 Current Complaints neck tightness & weakness s/p surgery radiation that impacts swallow History of Current Condition Nicole has had multiple interventions for cancer, most recently in April 2019, she underwent thyroid cancer surgery and per her report 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 She reports she had an PR and stopped breathing twice and had to be put on a ventilator. Since then she has had difficulty swallowing, failed a MBS and had a PEG tube place. She is now doing speech therapy, and they have been working on tongue exercises since she had to previously have tongue surgery to remove a cancer tumor. She also had surgery to remove lymph nodes bilaterally at the neck. Her speech therapist recommended PT due to her difficulty performing a chin tuck due to tightness and weakness in her neck, likely due to previous radiation therapy. She does have scar tissue and radiation scars especially on the right side of her neck. She states she does have tightness and pulling in the neck, but denies specific pain. Treatment Goals Patient/Caregiver Goals Get neck more mobile/ stronger to assist in swallow Prior Functional Status Baseline Function- ADL's Independent Baseline Function- Mobility Independent Current Functional Impairments (Reported) Functional Limitations- ADL's inability to eat, swallow without aspiration Personal Factors Other Personal Factors That May Effect Dizziness related to what Therapy/Recovery sounds like orthostatics, pt feels she is not getting enough blood flow to her head with positional changes. Headaches. Neck pain. Significant cancer and surgical history see above. PT-OP-C Subjective Start: 08/03/19 07:28 Freq: Status: Active Protocol: Document 08/03/19 11:15 AMB (Rec: 08/03/19 13:02 AMB [email or web address]) Patient Questionnaires Quick Dash- Upper Extremity Quick Dash UE Score 16 Quick Dash UE Impairment 1 to 19% Impaired (Score 1-19) PT-OP-F Manual Assessment Start: 08/03/19 07:28 Freq: Status: Active Protocol: Document 08/03/19 11:15 AMB (Rec: 08/03/19 16:03 AMB [email or web address]) Manual Assessments Soft Tissue Assessment Soft Tissue Mobility Assessment Significant tightness throughout right side of neck, over carotid artery, over hyoid and even down to thyroid scar. 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 Pt with radiation in 2017- proton therapy. PT-OP-J Posture/Palpation/Skin Start: 08/03/19 07:28 Freq: Status: Active Protocol: Document 08/03/19 11:15 AMB (Rec: 08/03/19 16:03 AMB [email or web address]) Posture Evaluation Comments Posture Comments Pt tends to sit/stand with a sidebent head towards the right PT-OP-K Range of Motion Start: 08/03/19 07:28 Freq: Status: Active Protocol: Document 08/03/19 11:15 AMB (Rec: 08/03/19 16:03 AMB [email or web address]) Cervical Spine Range of Motion Cervical Spine Active Degrees Testing Position Sitting Flexion 55 Extension 15 Rotation Left 65 Rotation Right 55 Lateral Flexion Left 15 Lateral Flexion Right 20 ROM Limitations Soft Tissue Tightness PT-OP-M Strength Start: 08/03/19 07:28 Freq: Status: Active Protocol: Document 08/03/19 11:15 AMB (Rec: 08/03/19 16:03 AMB [email or web address]) Cervical Spine Strength Cervical Spine Manual Muscle Testing Testing Position Supine Flexion (C1-2) 3 Fair Extension 4+ Good+ Rotation Left 4+ Good+ Rotation Right 4+ Good+ PT-OP-Q Treatments Start: 08/03/19 07:28 Freq: Status: Active Protocol: Document 08/03/19 11:15 AMB (Rec: 08/03/19 16:03 AMB [email or web address]) Therapeutic Exercises Standing Exercises 3 Standing Exercise Name scalene stretch Reps/Minutes 30x2 2 Standing Exercise Name chin tuck Equipment Used mirror feedback to avoid sidebending Comments tried in supine, but pt very much compensating 1 Standing Exercise Name pec stretch Reps/Minutes 30x2 Comments in doorway Manual Therapy Treatment Soft Tissue Mobilization 1 Body Location anterior neck Mobilization Type Myofascial Release Intensity/Depth Superficial PT-OP-T Assessment and Plan Start: 08/03/19 07:28 Freq: Status: Active Protocol: Document 08/03/19 11:15 AMB (Rec: 08/03/19 16:03 AMB [email or web address]) Physical Therapy Assessment Rehab Potential Rehabilitation Potential Good Evaluation Complexity Number of Personal Factors/Comorbidities 1-2 Number of Body Systems Impaired 4 or More Clinical Presentation at Evaluation Evolving Impairments Impairments Functional Activities, Integument,Posture,ROM Goals Three Impairment neck strength Short Term Goal (STG) Nicole will improve her neck strength so she can perform a supine chin tuck without compensation for 10 seconds. STG Duration 4 weeks Two Impairment HEP Short Term Goal (STG) Nicole will be independent with a HEP for strengthening, stretching and self massage. STG Duration 4 weeks One Impairment ROM Short Term Goal (STG) Nicole will improve her cervical rotation ROM to 65 degrees bilaterally. STG Duration 4 weeks Halfway Goal (LTG) Nicole will improve her cervical ROM to at least 25 degrees of extension. LTG Duration 8 weeks Assessment Summary Assessment Nicole attends with a complex medical history of surgical and radiation intervention for cancer. After her last surgery, which was complicated by a carotid artery dissection per her report, she was unable to swallow without aspiration and a PEG tube was placed. Now she is working with speech therapy to improve her swallow, but the tightness at her anterior neck from her prior radiation and surgery is impairing her mobility and her swallow. She will benefit from PT for instruction in appropriate strengthening, stretching, and myofascial release, as she does have significant tightness, postural changes, and weakness. Physical Therapy Plan Frequency and Duration Frequency of Treatment 2x/Week Duration of Treatment 8 weeks Plan of Care Start Date 08/03/19 Plan of Care End Date 09/28/19 Therapeutic Interventions Therapeutic Interventions Home Exercise Program,Manual Therapy,Neuromuscular Re- education,Self-Care/Home Management,Soft Tissue Mobilization,Therapeutic Activities,Therapeutic Exercises Modalities Cold Pack/Ice Massage,Hot Packs Next Visit Focus/Plan Next Note Type Treatment Note Next Visit Plan Begin with manual therapy, progress stretching and strengthening.
--- NOTE | 2019-08-05 15:59 | PT.OTN ---
Current Diagnoses Cervicalgia (08/05/19) Physical Therapy Treatment Note PT-OP-A Visit Information Start: 08/03/19 07:28 Freq: Status: Active Protocol: Document 08/05/19 11:15 AMB (Rec: 08/05/19 13:06 AMB [id number]) Out-Patient Physical Therapy Visit Information Visit Information Visit Type Treatment Note Visit Start Time 11:15 Visit Stop Time 12:00 Total Visit Minutes 45 Visit Number 2 PT-OP-B Current Condition Start: 08/03/19 07:28 Freq: Status: Active Protocol: Document 08/03/19 11:15 AMB (Rec: 08/03/19 13:02 AMB [email or web address]) Current Condition History of Current Condition Onset Date April 28, 2019 Current Complaints neck tightness & weakness s/p surgery radiation that impacts swallow History of Current Condition Nicole has had multiple interventions for cancer, most recently in April 2019, she underwent thyroid cancer surgery and per her report 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 She reports she had an MA and stopped breathing twice and had to be put on a ventilator. Since then she has had difficulty swallowing, failend a MBS and had a PEG tube place. She is now doing speech therapy, and they have been working on tongue exercises since she had to previously have tongue surgery to remove a cancer tumor. She also had surgery to remove lymph nodes bilaterally at the neck. Her speech therapist recommended PT due to her difficulty performing a chin tuck due to tightness and weakness in her neck, likely due to previous radiation therapy. She does have scar tissue and radiation scars especially on the right side of her neck. She states she does have tightness and pulling in the neck, but denies specific pain. Treatment Goals Patient/Caregiver Goals Get neck more mobile/ stronger to assist in swallow Prior Functional Status Baseline Function- ADL's Independent Baseline Function- Mobility Independent Current Functional Impairments (Reported) Functional Limitations- ADL's inability to eat, swallow without aspiration Personal Factors Other Personal Factors That May Effect Dizziness related to what Therapy/Recovery sounds like orthostatics, pt feels she is not getting enough blood flow to her head with postional changes. Headaches. Neck pain. Significant cancer and surgical history see above. PT-OP-C Subjective Start: 08/03/19 07:28 Freq: Status: Active Protocol: Document 08/05/19 11:15 AMB (Rec: 08/05/19 13:06 AMB [id number]) OP-PT Subjective Patient Comments Patient Comments Pt is doing well, was slightly sore after last visit but did not last more than a few hours after appointment. PT-OP-F Manual Assessment Start: 08/03/19 07:28 Freq: Status: Active Protocol: Document 08/03/19 11:15 AMB (Rec: 08/03/19 16:03 AMB [email or web address]) Manual Assessments Soft Tissue Assessment Soft Tissue Mobility Assessment Significant tightess throughout right side of neck, over carotid artery, over hyoid and even down to thyroid scar. 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 Pt with radiation in 2017- proton therapy. PT-OP-J Posture/Palpation/Skin Start: 08/03/19 07:28 Freq: Status: Active Protocol: Document 08/03/19 11:15 AMB (Rec: 08/03/19 16:03 AMB [email or web address]) Posture Evaluation Comments Posture Comments Pt tends to sit/stand with a sidebent head towards the right PT-OP-K Range of Motion Start: 08/03/19 07:28 Freq: Status: Active Protocol: Document 08/03/19 11:15 AMB (Rec: 08/03/19 16:03 AMB [email or web address]) Cervical Spine Range of Motion Cervical Spine Active Degrees Testing Position Sitting Flexion 55 Extension 15 Rotation Left 65 Rotation Right 55 Lateral Flexion Left 15 Lateral Flexion Right 20 ROM Limitations Soft Tissue Tightness PT-OP-M Strength Start: 08/03/19 07:28 Freq: Status: Active Protocol: Document 08/03/19 11:15 AMB (Rec: 08/03/19 16:03 AMB [email or web address]) Cervical Spine Strength Cervical Spine Manual Muscle Testing Testing Position Supine Flexion (C1-2) 3 Fair Extension 4+ Good+ Rotation Left 4+ Good+ Rotation Right 4+ Good+ PT-OP-Q Treatments Start: 08/03/19 07:28 Freq: Status: Active Protocol: Document 08/05/19 11:15 AMB (Rec: 08/05/19 15:59 AMB [email or web address]) Therapeutic Exercises Supine Exercises 2 Supine Exercise Name open book Reps/Minutes 10x2 1 Supine Exercise Name chin tuck Comments assisted manually as pt unable to perform without compensating Manual Therapy Treatment Soft Tissue Mobilization 2 Body Location upper trap/levator scap Body Position Hooklying Comments R 1 Body Location anterior neck Mobilization Type Myofascial Release Intensity/Depth Superficial Body Position Hooklying Comments especially working medially on superior/ caudal glide PT-OP-T Assessment and Plan Start: 08/03/19 07:28 Freq: Status: Active Protocol: Document 08/05/19 11:15 AMB (Rec: 08/05/19 13:02 AMB [email or web address]) Physical Therapy Assessment Assessment Summary Assessment Nicole's tissue mobility definitely improved after myofascial release. She continues to have deep neckflexor weakness and time will tell how well her tissue extensibility continues between treatments. Physical Therapy Plan Next Visit Focus/Plan Next Note Type Treatment Note Next Visit Plan Begin with manual therapy, progress stretching and strengthening.
--- NOTE | 2019-08-17 15:32 | PT.OTN ---
Current Diagnoses Cervicalgia (08/17/19) Physical Therapy Treatment Note PT-OP-A Visit Information Start: 08/03/19 07:28 Freq: Status: Active Protocol: Document 08/17/19 13:00 AMB (Rec: 08/17/19 14:30 AMB [email or web address]) Out-Patient Physical Therapy Visit Information Visit Information Visit Type Treatment Note Visit Start Time 13:00 Visit Stop Time 13:45 Total Visit Minutes 45 Visit Number 3 PT-OP-B Current Condition Start: 08/03/19 07:28 Freq: Status: Active Protocol: Document 08/03/19 11:15 AMB (Rec: 08/03/19 13:02 AMB [email or web address]) Current Condition History of Current Condition Onset Date April 28, 2019 Current Complaints neck tightness & weakness s/p surgery radiation that impacts swallow History of Current Condition Nicole has had multiple interventions for cancer, most recently in April 2019, she underwent thyroid cancer surgery and per her report 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 She reports she had an [place] and stopped breathing twice and had to be put on a ventilator. Since then she has had difficulty swallowing, failend a MBS and had a PEG tube place. She is now doing speech therapy, and they have been working on tongue exercises since she had to previously have tongue surgery to remove a cancer tumor. She also had surgery to remove lymph nodes bilaterally at the neck. Her speech therapist recommended PT due to her difficulty performing a chin tuck due to tightness and weakness in her neck, likely due to previous radiation therapy. She does have scar tissue and radiation scars especially on the right side of her neck. She states she does have tightness and pulling in the neck, but denies specific pain. Treatment Goals Patient/Caregiver Goals Get neck more mobile/ stronger to assist in swallow Prior Functional Status Baseline Function- ADL's Independent Baseline Function- Mobility Independent Current Functional Impairments (Reported) Functional Limitations- ADL's inability to eat, swallow without aspiration Personal Factors Other Personal Factors That May Effect Dizziness related to what Therapy/Recovery sounds like orthostatics, pt feels she is not getting enough blood flow to her head with postional changes. Headaches. Neck pain. Significant cancer and surgical history see above. PT-OP-C Subjective Start: 08/03/19 07:28 Freq: Status: Active Protocol: Document 08/17/19 13:00 AMB (Rec: 08/17/19 14:30 AMB [email or web address]) OP-PT Subjective Patient Comments Patient Comments Pt states she got a vocal cord injection on Saturday and is a bit hoarse from that. She does have a small bruise over the injection site. PT-OP-F Manual Assessment Start: 08/03/19 07:28 Freq: Status: Active Protocol: Document 08/03/19 11:15 AMB (Rec: 08/03/19 16:03 AMB [email or web address]) Manual Assessments Soft Tissue Assessment Soft Tissue Mobility Assessment Significant tightess throughout right side of neck, over carotid artery, over hyoid and even down to thyroid scar. 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 Pt with radiation in 2017- proton therapy. PT-OP-J Posture/Palpation/Skin Start: 08/03/19 07:28 Freq: Status: Active Protocol: Document 08/03/19 11:15 AMB (Rec: 08/03/19 16:03 AMB [email or web address]) Posture Evaluation Comments Posture Comments Pt tends to sit/stand with a sidebent head towards the right PT-OP-K Range of Motion Start: 08/03/19 07:28 Freq: Status: Active Protocol: Document 08/03/19 11:15 AMB (Rec: 08/03/19 16:03 AMB [email or web address]) Cervical Spine Range of Motion Cervical Spine Active Degrees Testing Position Sitting Flexion 55 Extension 15 Rotation Left 65 Rotation Right 55 Lateral Flexion Left 15 Lateral Flexion Right 20 ROM Limitations Soft Tissue Tightness PT-OP-M Strength Start: 08/03/19 07:28 Freq: Status: Active Protocol: Document 08/03/19 11:15 AMB (Rec: 08/03/19 16:03 AMB [email or web address]) Cervical Spine Strength Cervical Spine Manual Muscle Testing Testing Position Supine Flexion (C1-2) 3 Fair Extension 4+ Good+ Rotation Left 4+ Good+ Rotation Right 4+ Good+ PT-OP-Q Treatments Start: 08/03/19 07:28 Freq: Status: Active Protocol: Document 08/17/19 15:28 AMB (Rec: 08/17/19 15:32 AMB [email or web address]) Therapeutic Exercises Supine Exercises 3 Supine Exercise Name neck extension stretch Reps/Minutes 30x2 1 Supine Exercise Name chin tuck Comments assisted manually as pt unable to perform without compensating Standing Exercises 2 Standing Exercise Name chin tuck Equipment Used mirror feedback to avoid sidebending Comments tried in supine, but pt very much compensating Manual Therapy Treatment Soft Tissue Mobilization 2 Body Location upper trap/levator scap Body Position Hooklying Comments R 1 Body Location anterior neck Mobilization Type Myofascial Release Intensity/Depth Superficial Body Position Hooklying Comments especially working medially on superior glide PT-OP-T Assessment and Plan Start: 08/03/19 07:28 Freq: Status: Active Protocol: Document 08/17/19 13:00 AMB (Rec: 08/17/19 14:30 AMB [email or web address]) Physical Therapy Assessment Assessment Summary Assessment Continued to encourage in chin tucks, but pt unable to perform supine yet without compensation. Tissue overall more mobile, but scars just lateral to midline of neck are especially limited. Physical Therapy Plan Next Visit Focus/Plan Next Note Type Treatment Note Next Visit Plan Begin with manual therapy, progress stretching and strengthening.
--- NOTE | 2019-08-21 15:56 | PT.OTN ---
Current Diagnoses Cervicalgia (08/21/19) Physical Therapy Treatment Note PT-OP-A Visit Information Start: 08/03/19 07:28 Freq: Status: Active Protocol: Document 08/21/19 09:45 AMB (Rec: 08/21/19 15:55 AMB [email or web address]) Out-Patient Physical Therapy Visit Information Visit Information Visit Type Treatment Note Visit Start Time 09:45 Visit Stop Time 10:30 Total Visit Minutes 45 Visit Number 4 PT-OP-B Current Condition Start: 08/03/19 07:28 Freq: Status: Active Protocol: Document 08/03/19 11:15 AMB (Rec: 08/03/19 13:02 AMB [email or web address]) Current Condition History of Current Condition Onset Date April 28, 2019 Current Complaints neck tightness & weakness s/p surgery radiation that impacts swallow History of Current Condition Nicole has had multiple interventions for cancer, most recently in April 2019, she underwent thyroid cancer surgery and per her report 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 She reports she had an [place] and stopped breathing twice and had to be put on a ventilator. Since then she has had difficulty swallowing, failend a MBS and had a PEG tube place. She is now doing speech therapy, and they have been working on tongue exercises since she had to previously have tongue surgery to remove a cancer tumor. She also had surgery to remove lymph nodes bilaterally at the neck. Her speech therapist recommended PT due to her difficulty performing a chin tuck due to tightness and weakness in her neck, likely due to previous radiation therapy. She does have scar tissue and radiation scars especially on the right side of her neck. She states she does have tightness and pulling in the neck, but denies specific pain. Treatment Goals Patient/Caregiver Goals Get neck more mobile/ stronger to assist in swallow Prior Functional Status Baseline Function- ADL's Independent Baseline Function- Mobility Independent Current Functional Impairments (Reported) Functional Limitations- ADL's inability to eat, swallow without aspiration Personal Factors Other Personal Factors That May Effect Dizziness related to what Therapy/Recovery sounds like orthostatics, pt feels she is not getting enough blood flow to her head with postional changes. Headaches. Neck pain. Significant cancer and surgical history see above. PT-OP-C Subjective Start: 08/03/19 07:28 Freq: Status: Active Protocol: Document 08/21/19 09:45 AMB (Rec: 08/21/19 15:55 AMB [email or web address]) OP-PT Subjective Patient Comments Patient Comments Pt states her voice is still hoarse from the injection but it does seem to be helping her swallow. PT-OP-F Manual Assessment Start: 08/03/19 07:28 Freq: Status: Active Protocol: Document 08/03/19 11:15 AMB (Rec: 08/03/19 16:03 AMB [email or web address]) Manual Assessments Soft Tissue Assessment Soft Tissue Mobility Assessment Significant tightess throughout right side of neck, over carotid artery, over hyoid and even down to thyroid scar. 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 Pt with radiation in 2017- proton therapy. PT-OP-J Posture/Palpation/Skin Start: 08/03/19 07:28 Freq: Status: Active Protocol: Document 08/03/19 11:15 AMB (Rec: 08/03/19 16:03 AMB [email or web address]) Posture Evaluation Comments Posture Comments Pt tends to sit/stand with a sidebent head towards the right PT-OP-K Range of Motion Start: 08/03/19 07:28 Freq: Status: Active Protocol: Document 08/03/19 11:15 AMB (Rec: 08/03/19 16:03 AMB [email or web address]) Cervical Spine Range of Motion Cervical Spine Active Degrees Testing Position Sitting Flexion 55 Extension 15 Rotation Left 65 Rotation Right 55 Lateral Flexion Left 15 Lateral Flexion Right 20 ROM Limitations Soft Tissue Tightness PT-OP-M Strength Start: 08/03/19 07:28 Freq: Status: Active Protocol: Document 08/03/19 11:15 AMB (Rec: 08/03/19 16:03 AMB [email or web address]) Cervical Spine Strength Cervical Spine Manual Muscle Testing Testing Position Supine Flexion (C1-2) 3 Fair Extension 4+ Good+ Rotation Left 4+ Good+ Rotation Right 4+ Good+ PT-OP-Q Treatments Start: 08/03/19 07:28 Freq: Status: Active Protocol: Document 08/21/19 09:45 AMB (Rec: 08/21/19 15:55 AMB [email or web address]) Therapeutic Exercises Supine Exercises 3 Supine Exercise Name neck extension stretch Reps/Minutes 30x2 Comments with pt hand pulling inferiorly at medial clavicle 1 Supine Exercise Name chin tuck Reps/Minutes 5x10 Comments chin tuck and pushing back of head into pillow Manual Therapy Treatment Soft Tissue Mobilization 1 Body Location anterior neck Mobilization Type Myofascial Release Intensity/Depth Superficial Body Position Hooklying Comments especially working medially on superior glide PT-OP-T Assessment and Plan Start: 08/03/19 07:28 Freq: Status: Active Protocol: Document 08/21/19 09:45 AMB (Rec: 08/21/19 15:55 AMB [email or web address]) Physical Therapy Assessment Assessment Summary Assessment Gave pt new chin tuck modification and cervical extension with hold and stretch for HEP Physical Therapy Plan Next Visit Focus/Plan Next Note Type Treatment Note Next Visit Plan Begin with manual therapy, progress stretching and strengthening.
--- NOTE | 2019-08-24 16:16 | PT.OTN ---
Current Diagnoses Cervicalgia (08/24/19) Physical Therapy Treatment Note PT-OP-A Visit Information Start: 08/03/19 07:28 Freq: Status: Active Protocol: Document 08/24/19 13:00 AMB (Rec: 08/25/19 16:16 AMB [email or web address]) Out-Patient Physical Therapy Visit Information Visit Information Visit Type Treatment Note Visit Start Time 13:00 Visit Stop Time 13:45 Total Visit Minutes 45 Visit Number 5 PT-OP-B Current Condition Start: 08/03/19 07:28 Freq: Status: Active Protocol: Document 08/03/19 11:15 AMB (Rec: 08/03/19 13:02 AMB [email or web address]) Current Condition History of Current Condition Onset Date April 28, 2019 Current Complaints neck tightness & weakness s/p surgery radiation that impacts swallow History of Current Condition Nicole has had multiple interventions for cancer, most recently in April 2019, she underwent thyroid cancer surgery and per her report 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 She reports she had an IN and stopped breathing twice and had to be put on a ventilator. Since then she has had difficulty swallowing, failend a MBS and had a PEG tube place. She is now doing speech therapy, and they have been working on tongue exercises since she had to previously have tongue surgery to remove a cancer tumor. She also had surgery to remove lymph nodes bilaterally at the neck. Her speech therapist recommended PT due to her difficulty performing a chin tuck due to tightness and weakness in her neck, likely due to previous radiation therapy. She does have scar tissue and radiation scars especially on the right side of her neck. She states she does have tightness and pulling in the neck, but denies specific pain. Treatment Goals Patient/Caregiver Goals Get neck more mobile/ stronger to assist in swallow Prior Functional Status Baseline Function- ADL's Independent Baseline Function- Mobility Independent Current Functional Impairments (Reported) Functional Limitations- ADL's inability to eat, swallow without aspiration Personal Factors Other Personal Factors That May Effect Dizziness related to what Therapy/Recovery sounds like orthostatics, pt feels she is not getting enough blood flow to her head with postional changes. Headaches. Neck pain. Significant cancer and surgical history see above. PT-OP-C Subjective Start: 08/03/19 07:28 Freq: Status: Active Protocol: Document 08/24/19 13:00 AMB (Rec: 08/25/19 16:16 AMB [email or web address]) OP-PT Subjective Patient Comments Patient Comments Pt PT-OP-F Manual Assessment Start: 08/03/19 07:28 Freq: Status: Active Protocol: Document 08/03/19 11:15 AMB (Rec: 08/03/19 16:03 AMB [email or web address]) Manual Assessments Soft Tissue Assessment Soft Tissue Mobility Assessment Significant tightess throughout right side of neck, over carotid artery, over hyoid and even down to thyroid scar. 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 Pt with radiation in 2017- proton therapy. PT-OP-J Posture/Palpation/Skin Start: 08/03/19 07:28 Freq: Status: Active Protocol: Document 08/03/19 11:15 AMB (Rec: 08/03/19 16:03 AMB [email or web address]) Posture Evaluation Comments Posture Comments Pt tends to sit/stand with a sidebent head towards the right PT-OP-K Range of Motion Start: 08/03/19 07:28 Freq: Status: Active Protocol: Document 08/03/19 11:15 AMB (Rec: 08/03/19 16:03 AMB [email or web address]) Cervical Spine Range of Motion Cervical Spine Active Degrees Testing Position Sitting Flexion 55 Extension 15 Rotation Left 65 Rotation Right 55 Lateral Flexion Left 15 Lateral Flexion Right 20 ROM Limitations Soft Tissue Tightness PT-OP-M Strength Start: 08/03/19 07:28 Freq: Status: Active Protocol: Document 08/03/19 11:15 AMB (Rec: 08/03/19 16:03 AMB [email or web address]) Cervical Spine Strength Cervical Spine Manual Muscle Testing Testing Position Supine Flexion (C1-2) 3 Fair Extension 4+ Good+ Rotation Left 4+ Good+ Rotation Right 4+ Good+ PT-OP-Q Treatments Start: 08/03/19 07:28 Freq: Status: Active Protocol: Document 08/24/19 13:00 AMB (Rec: 08/25/19 16:16 AMB [email or web address]) Therapeutic Exercises Supine Exercises 4 Supine Exercise Name cervical extension PROM Reps/Minutes 30x3 3 Supine Exercise Name neck extension stretch Reps/Minutes 30x2 Comments with pt hand pulling inferiorly at medial clavicle 1 Supine Exercise Name chin tuck Reps/Minutes 5x10 Comments chin tuck and pushing back of head into pillow Manual Therapy Treatment Soft Tissue Mobilization 1 Body Location anterior neck Mobilization Type Myofascial Release Intensity/Depth Superficial Body Position Hooklying Comments especially working medially on superior glide PT-OP-T Assessment and Plan Start: 08/03/19 07:28 Freq: Status: Active Protocol: Document 08/24/19 13:00 AMB (Rec: 08/25/19 16:16 AMB [email or web address]) Physical Therapy Assessment Assessment Summary Assessment Pt's tissue is showing improved mobility, but difficult to tell if it is helping her swallow as her injection helped. Physical Therapy Plan Next Visit Focus/Plan Next Note Type Treatment Note Next Visit Plan Progress self manual therapy education, progress stretching and strengthening.
--- NOTE | 2019-08-28 16:12 | PT.OTN ---
Current Diagnoses Cervicalgia (08/28/19) Physical Therapy Treatment Note PT-OP-A Visit Information Start: 08/03/19 07:28 Freq: Status: Active Protocol: Document 08/28/19 13:00 AMB (Rec: 08/28/19 13:47 AMB [id number]) Out-Patient Physical Therapy Visit Information Visit Information Visit Type Treatment Note Visit Start Time 13:00 Visit Stop Time 13:45 Total Visit Minutes 45 Visit Number 6 PT-OP-B Current Condition Start: 08/03/19 07:28 Freq: Status: Active Protocol: Document 08/03/19 11:15 AMB (Rec: 08/03/19 13:02 AMB [email or web address]) Current Condition History of Current Condition Onset Date April 28, 2019 Current Complaints neck tightness & weakness s/p surgery radiation that impacts swallow History of Current Condition Nicole has had multiple interventions for cancer, most recently in April 2019, she underwent thyroid cancer surgery and per her report 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 She reports she had an IL and stopped breathing twice and had to be put on a ventilator. Since then she has had difficulty swallowing, failend a MBS and had a PEG tube place. She is now doing speech therapy, and they have been working on tongue exercises since she had to previously have tongue surgery to remove a cancer tumor. She also had surgery to remove lymph nodes bilaterally at the neck. Her speech therapist recommended PT due to her difficulty performing a chin tuck due to tightness and weakness in her neck, likely due to previous radiation therapy. She does have scar tissue and radiation scars especially on the right side of her neck. She states she does have tightness and pulling in the neck, but denies specific pain. Treatment Goals Patient/Caregiver Goals Get neck more mobile/ stronger to assist in swallow Prior Functional Status Baseline Function- ADL's Independent Baseline Function- Mobility Independent Current Functional Impairments (Reported) Functional Limitations- ADL's inability to eat, swallow without aspiration Personal Factors Other Personal Factors That May Effect Dizziness related to what Therapy/Recovery sounds like orthostatics, pt feels she is not getting enough blood flow to her head with postional changes. Headaches. Neck pain. Significant cancer and surgical history see above. PT-OP-C Subjective Start: 08/03/19 07:28 Freq: Status: Active Protocol: Document 08/28/19 13:00 AMB (Rec: 08/28/19 13:47 AMB [id number]) OP-PT Subjective Patient Comments Patient Comments Pt noted some soreness after last PT session, but resolved quickly, does feel that it stiffens back up again about a day after PT. She is doing her stretches and massaging her neck. PT-OP-F Manual Assessment Start: 08/03/19 07:28 Freq: Status: Active Protocol: Document 08/03/19 11:15 AMB (Rec: 08/03/19 16:03 AMB [email or web address]) Manual Assessments Soft Tissue Assessment Soft Tissue Mobility Assessment Significant tightess throughout right side of neck, over carotid artery, over hyoid and even down to thyroid scar. 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 Pt with radiation in 2017- proton therapy. PT-OP-J Posture/Palpation/Skin Start: 08/03/19 07:28 Freq: Status: Active Protocol: Document 08/03/19 11:15 AMB (Rec: 08/03/19 16:03 AMB [email or web address]) Posture Evaluation Comments Posture Comments Pt tends to sit/stand with a sidebent head towards the right PT-OP-K Range of Motion Start: 08/03/19 07:28 Freq: Status: Active Protocol: Document 08/03/19 11:15 AMB (Rec: 08/03/19 16:03 AMB [email or web address]) Cervical Spine Range of Motion Cervical Spine Active Degrees Testing Position Sitting Flexion 55 Extension 15 Rotation Left 65 Rotation Right 55 Lateral Flexion Left 15 Lateral Flexion Right 20 ROM Limitations Soft Tissue Tightness PT-OP-M Strength Start: 08/03/19 07:28 Freq: Status: Active Protocol: Document 08/03/19 11:15 AMB (Rec: 08/03/19 16:03 AMB [email or web address]) Cervical Spine Strength Cervical Spine Manual Muscle Testing Testing Position Supine Flexion (C1-2) 3 Fair Extension 4+ Good+ Rotation Left 4+ Good+ Rotation Right 4+ Good+ PT-OP-Q Treatments Start: 08/03/19 07:28 Freq: Status: Active Protocol: Document 08/28/19 13:00 AMB (Rec: 08/28/19 16:12 AMB [email or web address]) Therapeutic Exercises Supine Exercises 3 Supine Exercise Name neck extension stretch Reps/Minutes 30x2 Comments with pt hand pulling inferiorly at medial clavicle 1 Supine Exercise Name chin tuck Reps/Minutes 5x10 Comments chin tuck and pushing back of head into pillow Manual Therapy Treatment Soft Tissue Mobilization 2 Body Location SCM and scalenes Body Position Hooklying Comments R 1 Body Location anterior neck Mobilization Type Myofascial Release Intensity/Depth Superficial Body Position Hooklying Comments especially working medially on superior glide PT-OP-T Assessment and Plan Start: 08/03/19 07:28 Freq: Status: Active Protocol: Document 08/28/19 13:00 AMB (Rec: 08/28/19 16:12 AMB [email or web address]) Physical Therapy Assessment Assessment Summary Assessment Pt is continuing to notice small but steady gains with her cervical mobility. She is seeing her speech therapist next week. Physical Therapy Plan Next Visit Focus/Plan Next Note Type Treatment Note Next Visit Plan Progress self manual therapy education, progress stretching and strengthening.
--- NOTE | 2019-08-31 12:56 | PT.OTN ---
Current Diagnoses Cervicalgia (08/31/19) Physical Therapy Treatment Note PT-OP-A Visit Information Start: 08/03/19 07:28 Freq: Status: Active Protocol: Document 08/31/19 12:12 MB (Rec: 08/31/19 12:56 MB [id number]) Out-Patient Physical Therapy Visit Information Visit Information Visit Type Treatment Note Visit Start Time 12:12 Visit Stop Time 12:52 Total Visit Minutes 40 Visit Number 7 PT-OP-B Current Condition Start: 08/03/19 07:28 Freq: Status: Active Protocol: Document 08/03/19 11:15 AMB (Rec: 08/03/19 13:02 AMB [email or web address]) Current Condition History of Current Condition Onset Date April 28, 2019 Current Complaints neck tightness & weakness s/p surgery radiation that impacts swallow History of Current Condition Nicole has had multiple interventions for cancer, most recently in April 2019, she underwent thyroid cancer surgery and per her report 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 She reports she had an NM and stopped breathing twice and had to be put on a ventilator. Since then she has had difficulty swallowing, failend a MBS and had a PEG tube place. She is now doing speech therapy, and they have been working on tongue exercises since she had to previously have tongue surgery to remove a cancer tumor. She also had surgery to remove lymph nodes bilaterally at the neck. Her speech therapist recommended PT due to her difficulty performing a chin tuck due to tightness and weakness in her neck, likely due to previous radiation therapy. She does have scar tissue and radiation scars especially on the right side of her neck. She states she does have tightness and pulling in the neck, but denies specific pain. Treatment Goals Patient/Caregiver Goals Get neck more mobile/ stronger to assist in swallow Prior Functional Status Baseline Function- ADL's Independent Baseline Function- Mobility Independent Current Functional Impairments (Reported) Functional Limitations- ADL's inability to eat, swallow without aspiration Personal Factors Other Personal Factors That May Effect Dizziness related to what Therapy/Recovery sounds like orthostatics, pt feels she is not getting enough blood flow to her head with postional changes. Headaches. Neck pain. Significant cancer and surgical history see above. PT-OP-C Subjective Start: 08/03/19 07:28 Freq: Status: Active Protocol: Document 08/31/19 12:12 MB (Rec: 08/31/19 12:56 MB [id number]) OP-PT Subjective Patient Comments Patient Comments Pt only had one day of soreness after last PT session . She feels tight. PT-OP-F Manual Assessment Start: 08/03/19 07:28 Freq: Status: Active Protocol: Document 08/03/19 11:15 AMB (Rec: 08/03/19 16:03 AMB [email or web address]) Manual Assessments Soft Tissue Assessment Soft Tissue Mobility Assessment Significant tightess throughout right side of neck, over carotid artery, over hyoid and even down to thyroid scar. 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 Pt with radiation in 2017- proton therapy. PT-OP-J Posture/Palpation/Skin Start: 08/03/19 07:28 Freq: Status: Active Protocol: Document 08/03/19 11:15 AMB (Rec: 08/03/19 16:03 AMB [email or web address]) Posture Evaluation Comments Posture Comments Pt tends to sit/stand with a sidebent head towards the right PT-OP-K Range of Motion Start: 08/03/19 07:28 Freq: Status: Active Protocol: Document 08/03/19 11:15 AMB (Rec: 08/03/19 16:03 AMB [email or web address]) Cervical Spine Range of Motion Cervical Spine Active Degrees Testing Position Sitting Flexion 55 Extension 15 Rotation Left 65 Rotation Right 55 Lateral Flexion Left 15 Lateral Flexion Right 20 ROM Limitations Soft Tissue Tightness PT-OP-M Strength Start: 08/03/19 07:28 Freq: Status: Active Protocol: Document 08/03/19 11:15 AMB (Rec: 08/03/19 16:03 AMB [email or web address]) Cervical Spine Strength Cervical Spine Manual Muscle Testing Testing Position Supine Flexion (C1-2) 3 Fair Extension 4+ Good+ Rotation Left 4+ Good+ Rotation Right 4+ Good+ PT-OP-Q Treatments Start: 08/03/19 07:28 Freq: Status: Active Protocol: Document 08/31/19 12:12 MB (Rec: 08/31/19 12:56 MB [id number]) Manual Therapy Treatment Other Other Manual Treatments Pt agreeable to Counterstrain to assess and treat fascial tension and PT treats stacks: right facial neural fascia and vagus. PT-OP-T Assessment and Plan Start: 08/03/19 07:28 Freq: Status: Active Protocol: Document 08/31/19 12:12 MB (Rec: 08/31/19 12:56 MB [id number]) Physical Therapy Assessment Assessment Summary Assessment Initiated Counterstrain this date and will monitor pt's response. Pt presents with coolness to touch on right face near maxilla before treatment. Consider ongoing gentle positional release of right SCM with MWM with cervical rotation/SB through small range Physical Therapy Plan Next Visit Focus/Plan Next Note Type Treatment Note Next Visit Plan Assess Counterstrain treatment . Ask pt how cervical support is feeling as well as tongue to roof of mouth with stretches
--- NOTE | 2019-09-08 09:45 | PT.OTN ---
Current Diagnoses Cervicalgia (09/08/19) Physical Therapy Treatment Note PT-OP-A Visit Information Start: 08/03/19 07:28 Freq: Status: Active Protocol: Document 09/08/19 09:05 SP (Rec: 09/08/19 09:52 SP [id number]) Out-Patient Physical Therapy Visit Information Visit Information Visit Type Treatment Note Visit Start Time 09:05 Visit Stop Time 09:45 Total Visit Minutes 40 Visit Number 8 Number of TRUCK DRIVER INSTRUCTOR Visits 1 PT-OP-B Current Condition Start: 08/03/19 07:28 Freq: Status: Active Protocol: Document 08/03/19 11:15 AMB (Rec: 08/03/19 13:02 AMB [email or web address]) Current Condition History of Current Condition Onset Date April 28, 2019 Current Complaints neck tightness & weakness s/p surgery radiation that impacts swallow History of Current Condition Nicole has had multiple interventions for cancer, most recently in April 2019, she underwent thyroid cancer surgery and per her report 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 She reports she had an MT and stopped breathing twice and had to be put on a ventilator. Since then she has had difficulty swallowing, failend a MBS and had a PEG tube place. She is now doing speech therapy, and they have been working on tongue exercises since she had to previously have tongue surgery to remove a cancer tumor. She also had surgery to remove lymph nodes bilaterally at the neck. Her speech therapist recommended PT due to her difficulty performing a chin tuck due to tightness and weakness in her neck, likely due to previous radiation therapy. She does have scar tissue and radiation scars especially on the right side of her neck. She states she does have tightness and pulling in the neck, but denies specific pain. Treatment Goals Patient/Caregiver Goals Get neck more mobile/ stronger to assist in swallow Prior Functional Status Baseline Function- ADL's Independent Baseline Function- Mobility Independent Current Functional Impairments (Reported) Functional Limitations- ADL's inability to eat, swallow without aspiration Personal Factors Other Personal Factors That May Effect Dizziness related to what Therapy/Recovery sounds like orthostatics, pt feels she is not getting enough blood flow to her head with postional changes. Headaches. Neck pain. Significant cancer and surgical history see above. PT-OP-C Subjective Start: 08/03/19 07:28 Freq: Status: Active Protocol: Document 09/08/19 09:05 SP (Rec: 12/31/19 09:52 SP [id number]) OP-PT Subjective Patient Comments Patient Comments Pt stated felt pretty nauseous after counterstrain treatment with PT but went away later in the day. PT-OP-F Manual Assessment Start: 08/03/19 07:28 Freq: Status: Active Protocol: Document 08/03/19 11:15 AMB (Rec: 08/03/19 16:03 AMB [email or web address]) Manual Assessments Soft Tissue Assessment Soft Tissue Mobility Assessment Significant tightess throughout right side of neck, over carotid artery, over hyoid and even down to thyroid scar. 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 Pt with radiation in 2017- proton therapy. PT-OP-J Posture/Palpation/Skin Start: 08/03/19 07:28 Freq: Status: Active Protocol: Document 08/03/19 11:15 AMB (Rec: 08/03/19 16:03 AMB [email or web address]) Posture Evaluation Comments Posture Comments Pt tends to sit/stand with a sidebent head towards the right PT-OP-K Range of Motion Start: 08/03/19 07:28 Freq: Status: Active Protocol: Document 08/03/19 11:15 AMB (Rec: 08/03/19 16:03 AMB [email or web address]) Cervical Spine Range of Motion Cervical Spine Active Degrees Testing Position Sitting Flexion 55 Extension 15 Rotation Left 65 Rotation Right 55 Lateral Flexion Left 15 Lateral Flexion Right 20 ROM Limitations Soft Tissue Tightness PT-OP-M Strength Start: 08/03/19 07:28 Freq: Status: Active Protocol: Document 08/03/19 11:15 AMB (Rec: 08/03/19 16:03 AMB [email or web address]) Cervical Spine Strength Cervical Spine Manual Muscle Testing Testing Position Supine Flexion (C1-2) 3 Fair Extension 4+ Good+ Rotation Left 4+ Good+ Rotation Right 4+ Good+ PT-OP-Q Treatments Start: 08/03/19 07:28 Freq: Status: Active Protocol: Document 09/08/19 09:05 SP (Rec: 09/08/19 09:52 SP [id number]) Therapeutic Exercises Supine Exercises 3 Supine Exercise Name neck extension stretch (seated ) Reps/Minutes 30x2 Comments with pt hand pulling inferiorly at medial clavicle 1 Supine Exercise Name chin nod Reps/Minutes 5 x5 Comments head nod with gentle retro press into pillow/towel Standing Exercises scap retract/depress Reps/Minutes 10 sec x10 Comments cued neutral CS (head nod awareness) 1 Standing Exercise Name SCM, scalene Side right Reps/Minutes 5 x5 Manual Therapy Treatment Soft Tissue Mobilization 2 Body Location SCM and scalenes Body Position Hooklying Comments R 1 Body Location anterior R>L neck Mobilization Type Myofascial Release Intensity/Depth Superficial Body Position Hooklying Comments especially working laterally on inferior glide PT-OP-T Assessment and Plan Start: 08/03/19 07:28 Freq: Status: Active Protocol: Document 09/08/19 09:05 SP (Rec: 09/08/19 09:52 SP [id number]) Physical Therapy Assessment Goals Three Impairment neck strength Short Term Goal (STG) Nicole will improve her neck strength so she can perform a supine chin tuck without compensation for 10 seconds. STG Duration 4 weeks Two Impairment HEP Short Term Goal (STG) iNcole will be independent with a HEP for strengthening, stretching and self massage. STG Duration 4 weeks One Impairment ROM Short Term Goal (STG) Nicole will improve her cervical rotation ROM to 65 degrees bilaterally. STG Duration 4 weeks Usp Goal (LTG) Nicole will improve her cervical ROM to at least 25 degrees of extension. LTG Duration 8 weeks Assessment Summary Assessment Pt tolerated MFR manual anterior R neck initially medial and superior direction emphasis with improvement in mobility, then more inferior and lateral with light pressure and feedback requested with education in self application. Reviewed chin nod and CS ext HEP ,added seated SCM/scalene gentle tolerated tension and scap retraction/ depression to assist awareness of TS and scap stability during chin/ head nod ex to decrease protraction recoil with positive results. No adverse affects to tx and stated feels looser end of tx. Physical Therapy Plan Frequency and Duration Frequency of Treatment 2x/Week Duration of Treatment 8 weeks Plan of Care Start Date 08/03/19 Plan of Care End Date 09/28/19 Therapeutic Interventions Therapeutic Interventions Home Exercise Program,Manual Therapy,Neuromuscular Re- education,Self-Care/Home Management,Soft Tissue Mobilization,Therapeutic Activities,Therapeutic Exercises Modalities Cold Pack/Ice Massage,Hot Packs Next Visit Focus/Plan Next Note Type Treatment Note Next Visit Plan Assess scap retraction, scm/ scalene stretches perfromed last tx. Cued tongue roof of mouth with stretches Continue per PT POC: Progress self manual therapy education, progress stretching and strengthening.
--- NOTE | 2019-09-11 11:58 | PT.OTN ---
Current Diagnoses Cervicalgia (09/11/19) Physical Therapy Treatment Note PT-OP-A Visit Information Start: 08/03/19 07:28 Freq: Status: Active Protocol: Document 09/11/19 11:19 MB (Rec: 09/11/19 11:57 MB [id number]) Out-Patient Physical Therapy Visit Information Visit Information Visit Type Treatment Note Visit Start Time 11:19 Visit Stop Time 11:57 Total Visit Minutes 38 Visit Number 9 Number of WEBSITE ADMIN Visits 1 PT-OP-B Current Condition Start: 08/03/19 07:28 Freq: Status: Active Protocol: Document 08/03/19 11:15 AMB (Rec: 08/03/19 13:02 AMB [email or web address]) Current Condition History of Current Condition Onset Date April 28, 2019 Current Complaints neck tightness & weakness s/p surgery radiation that impacts swallow History of Current Condition Nicole has had multiple interventions for cancer, most recently in April 2019, she underwent thyroid cancer surgery and per her report 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 She reports she had an [place] and stopped breathing twice and had to be put on a ventilator. Since then she has had difficulty swallowing, failend a MBS and had a PEG tube place. She is now doing speech therapy, and they have been working on tongue exercises since she had to previously have tongue surgery to remove a cancer tumor. She also had surgery to remove lymph nodes bilaterally at the neck. Her speech therapist recommended PT due to her difficulty performing a chin tuck due to tightness and weakness in her neck, likely due to previous radiation therapy. She does have scar tissue and radiation scars especially on the right side of her neck. She states she does have tightness and pulling in the neck, but denies specific pain. Treatment Goals Patient/Caregiver Goals Get neck more mobile/ stronger to assist in swallow Prior Functional Status Baseline Function- ADL's Independent Baseline Function- Mobility Independent Current Functional Impairments (Reported) Functional Limitations- ADL's inability to eat, swallow without aspiration Personal Factors Other Personal Factors That May Effect Dizziness related to what Therapy/Recovery sounds like orthostatics, pt feels she is not getting enough blood flow to her head with postional changes. Headaches. Neck pain. Significant cancer and surgical history see above. PT-OP-C Subjective Start: 08/03/19 07:28 Freq: Status: Active Protocol: Document 09/11/19 11:19 MB (Rec: 09/11/19 11:57 MB [id number]) OP-PT Subjective Patient Comments Patient Comments Pt states that she had cardiac rehab after the Counterstrain treatment 2 treatments ago and she thinks that this contributed to nausea. PT-OP-F Manual Assessment Start: 08/03/19 07:28 Freq: Status: Active Protocol: Document 08/03/19 11:15 AMB (Rec: 08/03/19 16:03 AMB [email or web address]) Manual Assessments Soft Tissue Assessment Soft Tissue Mobility Assessment Significant tightess throughout right side of neck, over carotid artery, over hyoid and even down to thyroid scar. 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 Pt with radiation in 2017- proton therapy. PT-OP-J Posture/Palpation/Skin Start: 08/03/19 07:28 Freq: Status: Active Protocol: Document 08/03/19 11:15 AMB (Rec: 08/03/19 16:03 AMB [email or web address]) Posture Evaluation Comments Posture Comments Pt tends to sit/stand with a sidebent head towards the right PT-OP-K Range of Motion Start: 08/03/19 07:28 Freq: Status: Active Protocol: Document 08/03/19 11:15 AMB (Rec: 08/03/19 16:03 AMB [email or web address]) Cervical Spine Range of Motion Cervical Spine Active Degrees Testing Position Sitting Flexion 55 Extension 15 Rotation Left 65 Rotation Right 55 Lateral Flexion Left 15 Lateral Flexion Right 20 ROM Limitations Soft Tissue Tightness PT-OP-M Strength Start: 08/03/19 07:28 Freq: Status: Active Protocol: Document 08/03/19 11:15 AMB (Rec: 08/03/19 16:03 AMB [email or web address]) Cervical Spine Strength Cervical Spine Manual Muscle Testing Testing Position Supine Flexion (C1-2) 3 Fair Extension 4+ Good+ Rotation Left 4+ Good+ Rotation Right 4+ Good+ PT-OP-Q Treatments Start: 08/03/19 07:28 Freq: Status: Active Protocol: Document 09/11/19 11:19 MB (Rec: 09/11/19 11:57 MB [id number]) Manual Therapy Treatment Other Other Manual Treatments Pt agreeable to Counterstrain to assess and treat fascial tension and PT treats stacks: right spinomedullary LV cervical and thoracic Also, gentle SC mobs grade 1-2 to help decrease scalene and SCM tension PT-OP-T Assessment and Plan Start: 08/03/19 07:28 Freq: Status: Active Protocol: Document 09/11/19 11:19 MB (Rec: 09/11/19 11:57 MB [id number]) Physical Therapy Assessment Goals Three Impairment neck strength Short Term Goal (STG) Nicole will improve her neck strength so she can perform a supine chin tuck without compensation for 10 seconds. STG Duration 4 weeks Two Impairment HEP Short Term Goal (STG) Nicole will be independent with a HEP for strengthening, stretching and self massage. STG Duration 4 weeks One Impairment ROM Short Term Goal (STG) Nicole will improve her cervical rotation ROM to 65 degrees bilaterally. STG Duration 4 weeks Control Tower Operator Goal (LTG) Nicole will improve her cervical ROM to at least 25 degrees of extension. LTG Duration 8 weeks Assessment Summary Assessment Given reports of dizziness getting up, PT checks PT today . Orthostatic assessment in LUE with BP & HR: supine 122/ 77, 85; standing; 107/69, 91; standing 30 sec 103/66, 92; standing 1' 107/70, 91. Con't Counterstrain today and pt does not have nausea afterwards but will monitor. Physical Therapy Plan Frequency and Duration Frequency of Treatment 2x/Week Duration of Treatment 8 weeks Plan of Care Start Date 08/03/19 Plan of Care End Date 09/28/19 Therapeutic Interventions Therapeutic Interventions Home Exercise Program,Manual Therapy,Neuromuscular Re- education,Self-Care/Home Management,Soft Tissue Mobilization,Therapeutic Activities,Therapeutic Exercises Modalities Cold Pack/Ice Massage,Hot Packs Next Visit Focus/Plan Next Note Type Progress Note Next Visit Plan Assess scap retraction, scm/ scalene stretches Continue per PT POC: Progress self manual therapy education, progress stretching and strengthening.
--- NOTE | 2019-09-15 10:29 | PT.OTN ---
Current Diagnoses Cervicalgia (09/15/19) Physical Therapy Treatment Note PT-OP-A Visit Information Start: 08/03/19 07:28 Freq: Status: Active Protocol: Document 09/15/19 09:47 MB (Rec: 09/15/19 10:29 MB [id number]) Out-Patient Physical Therapy Visit Information Visit Information Visit Type Treatment Note Visit Start Time 09:47 Visit Stop Time 10:27 Total Visit Minutes 40 Visit Number 10 Number of SENIOR ANDROID DEVELOPER Visits 1 PT-OP-B Current Condition Start: 08/03/19 07:28 Freq: Status: Active Protocol: Document 08/03/19 11:15 AMB (Rec: 08/03/19 13:02 AMB [email or web address]) Current Condition History of Current Condition Onset Date April 28, 2019 Current Complaints neck tightness & weakness s/p surgery radiation that impacts swallow History of Current Condition Nicole has had multiple interventions for cancer, most recently in April 2019, she underwent thyroid cancer surgery and per her report 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 She reports she had an DC and stopped breathing twice and had to be put on a ventilator. Since then she has had difficulty swallowing, failend a MBS and had a PEG tube place. She is now doing speech therapy, and they have been working on tongue exercises since she had to previously have tongue surgery to remove a cancer tumor. She also had surgery to remove lymph nodes bilaterally at the neck. Her speech therapist recommended PT due to her difficulty performing a chin tuck due to tightness and weakness in her neck, likely due to previous radiation therapy. She does have scar tissue and radiation scars especially on the right side of her neck. She states she does have tightness and pulling in the neck, but denies specific pain. Treatment Goals Patient/Caregiver Goals Get neck more mobile/ stronger to assist in swallow Prior Functional Status Baseline Function- ADL's Independent Baseline Function- Mobility Independent Current Functional Impairments (Reported) Functional Limitations- ADL's inability to eat, swallow without aspiration Personal Factors Other Personal Factors That May Effect Dizziness related to what Therapy/Recovery sounds like orthostatics, pt feels she is not getting enough blood flow to her head with postional changes. Headaches. Neck pain. Significant cancer and surgical history see above. PT-OP-C Subjective Start: 08/03/19 07:28 Freq: Status: Active Protocol: Document 09/15/19 09:47 MB (Rec: 09/15/19 10:29 MB [id number]) OP-PT Subjective Patient Comments Patient Comments Pt states that she did not have nausea after last Counterstrain treatment. She feels like she can breathe better. Her right SCM and ear are hurting. PT-OP-F Manual Assessment Start: 08/03/19 07:28 Freq: Status: Active Protocol: Document 08/03/19 11:15 AMB (Rec: 08/03/19 16:03 AMB [email or web address]) Manual Assessments Soft Tissue Assessment Soft Tissue Mobility Assessment Significant tightess throughout right side of neck, over carotid artery, over hyoid and even down to thyroid scar. 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 Pt with radiation in 2017- proton therapy. PT-OP-J Posture/Palpation/Skin Start: 08/03/19 07:28 Freq: Status: Active Protocol: Document 08/03/19 11:15 AMB (Rec: 08/03/19 16:03 AMB [email or web address]) Posture Evaluation Comments Posture Comments Pt tends to sit/stand with a sidebent head towards the right PT-OP-K Range of Motion Start: 08/03/19 07:28 Freq: Status: Active Protocol: Document 08/03/19 11:15 AMB (Rec: 08/03/19 16:03 AMB [email or web address]) Cervical Spine Range of Motion Cervical Spine Active Degrees Testing Position Sitting Flexion 55 Extension 15 Rotation Left 65 Rotation Right 55 Lateral Flexion Left 15 Lateral Flexion Right 20 ROM Limitations Soft Tissue Tightness PT-OP-M Strength Start: 08/03/19 07:28 Freq: Status: Active Protocol: Document 08/03/19 11:15 AMB (Rec: 08/03/19 16:03 AMB [email or web address]) Cervical Spine Strength Cervical Spine Manual Muscle Testing Testing Position Supine Flexion (C1-2) 3 Fair Extension 4+ Good+ Rotation Left 4+ Good+ Rotation Right 4+ Good+ PT-OP-Q Treatments Start: 08/03/19 07:28 Freq: Status: Active Protocol: Document 09/15/19 09:47 MB (Rec: 09/15/19 10:29 MB [id number]) Therapeutic Exercises Other Exercises Reviewed all HEP exercises today Comments See assessment comments Manual Therapy Treatment Other Other Manual Treatments MWM right middle scalene, PT providing pressure and pt performing left SB--better movement after treatment and no adverse response PT-OP-T Assessment and Plan Start: 08/03/19 07:28 Freq: Status: Active Protocol: Document 09/15/19 09:47 MB (Rec: 09/15/19 10:29 MB [id number]) Physical Therapy Assessment Goals Three Impairment neck strength Alf Goal (LTG) Nicole will improve her neck strength so she can perform a supine chin tuck without compensation for 10 seconds by 11/16/2019. 09/15/2019: Pt presents with fascial tightness and gentle head tilt to the right when performing this today. LTG Duration 8 weeks Two Impairment HEP Continuous Miner Goal (LTG) Nicole will be independent with a HEP for strengthening, stretching and self massage to improve ROM and decrease pain by 11/16/2019. 09/15/2019: Pt is performing current stretches, scapular retraction LTG Duration 8 weeks One Impairment ROM Short Term Goal (STG) Nicole will improve her cervical rotation ROM to 65 degrees bilaterally. 09/15/2019: Pt presents with 40 deg rotation to the right and 40 deg to the left; head rests in 3 deg left rotation STG Duration 4 weeks Continuous Miner Goal (LTG) Nicole will improve her active cervical rotation to at least 60 deg and extension to to at least 25 deg by 11/14/2019 to improve head movement with driving. 09/15/2019: Pt presents with 10 deg extension LTG Duration 8 weeks Assessment Summary Assessment Reviewed exercises this date. Ed pt not to perform head lift in supine that she was given by COMPLIANCE REVIEW OFFICER d/t SCM tightness and fascial problems. Ed pt to be careful with overhead free weight lifting with cardiopulmonary rehab. Stop massage with SCM/scalene stretch (add MWM with cervical rotation or SB in future supine with neck supported). Added resisted isometric after stretching scalenes. Pt has made slow progress towards goals since starting PT. Barriers include fascial changes post-op and after radiation. Her right neck ( middle scalenes, SCM) is very tight. Her resting head position is 3 deg left rotation with very mild right SB. She responds well to Counsterstrain and SC mobs to improve breathing. She will benefit from ongoing PT to improve ROM, thoracic and rib expension, and manual work. Physical Therapy Plan Frequency and Duration Frequency of Treatment 2x/Week Duration of Treatment 8 weeks Plan of Care Start Date 09/15/19 Plan of Care End Date 11/16/19 Therapeutic Interventions Therapeutic Interventions Home Exercise Program,Manual Therapy,Neuromuscular Re- education,Self-Care/Home Management,Soft Tissue Mobilization,Therapeutic Activities,Therapeutic Exercises Modalities Cold Pack/Ice Massage,Hot Packs Next Visit Focus/Plan Next Note Type Progress Note Next Visit Plan Consider MWM with cervical rotation for SCM. Consider progression of scapular retraction, shoulder and elbow extension and shoulder rotator strengthening. Consider progression of breathing and rib and lung exercises, SC and rib recoil manual work.
--- NOTE | 2019-09-15 10:34 | PT.OPPOC ---
Physical, Occupational & Speech Therapy At [facility] Current Diagnoses Cervicalgia (09/15/19) Visit Care Team Role Provider Type Jason Traore MD Attending Provider Non-Staff Primary Care Provider Specialty: Medical Address: [id number], [place], [address] Email: Plan Of Care PT-OP-T Assessment and Plan Start: 08/03/19 07:28 Freq: Status: Active Protocol: Document 09/15/19 09:47 MB (Rec: 09/15/19 10:29 MB [id number]) Physical Therapy Assessment Goals Three Impairment neck strength Intermediate Goal (LTG) Nicole will improve her neck strength so she can perform a supine chin tuck without compensation for 10 seconds by 11/16/2019. 09/15/2019: Pt presents with fascial tightness and gentle head tilt to the right when performing this today. LTG Duration 8 weeks Two Impairment HEP Desktop Architect Goal (LTG) Nicole will be independent with a HEP for strengthening, stretching and self massage to improve ROM and decrease pain by 11/16/2019. 09/15/2019: Pt is performing current stretches, scapular retraction LTG Duration 8 weeks One Impairment ROM Short Term Goal (STG) Nicole will improve her cervical rotation ROM to 65 degrees bilaterally. 09/15/2019: Pt presents with 40 deg rotation to the right and 40 deg to the left; head rests in 3 deg left rotation STG Duration 4 weeks Intermediate Goal (LTG) Nicole will improve her active cervical rotation to at least 60 deg and extension to to at least 25 deg by 11/14/2019 to improve head movement with driving. 09/15/2019: Pt presents with 10 deg extension LTG Duration 8 weeks Assessment Summary Assessment Reviewed exercises this date. Ed pt not to perform head lift in supine that she was given by ASSEMBLER SEAT d/t SCM tightness and fascial problems. Ed pt to be careful with overhead free weight lifting with cardiopulmonary rehab. Stop massage with SCM/scalene stretch (add MWM with cervical rotation or SB in future supine with neck supported). Added resisted isometric after stretching scalenes. Pt has made slow progress towards goals since starting PT. Barriers include fascial changes post-op and after radiation. Her right neck ( middle scalenes, SCM) is very tight. Her resting head position is 3 deg left rotation with very mild right SB. She responds well to Counsterstrain and SC mobs to improve breathing. She will benefit from ongoing PT to improve ROM, thoracic and rib expension, and manual work. Physical Therapy Plan Frequency and Duration Frequency of Treatment 2x/Week Duration of Treatment 8 weeks Plan of Care Start Date 09/15/19 Plan of Care End Date 11/16/19 Therapeutic Interventions Therapeutic Interventions Home Exercise Program,Manual Therapy,Neuromuscular Re- education,Self-Care/Home Management,Soft Tissue Mobilization,Therapeutic Activities,Therapeutic Exercises Modalities Cold Pack/Ice Massage,Hot Packs Next Visit Focus/Plan Next Note Type Progress Note Next Visit Plan Consider MWM with cervical rotation for SCM. Consider progression of scapular retraction, shoulder and elbow extension and shoulder rotator strengthening. Consider progression of breathing and rib and lung exercises, SC and rib recoil manual work. Plan of Care Dates Plan of Care Start Date 09/15/19 Plan of Care End Date 11/16/19 Electronically Signed by: Sybil Mao, PT 09/15/19 9002 Please Sign and Return: I have reviewed this Plan of Care and certify that the skilled therapy services above are required to meet the patient?s needs. Physician Signature Date Printed Name and Credentials Clinical Instructor Signature Printed Name and Credentials
--- NOTE | 2019-09-18 14:12 | PT.OTN ---
Current Diagnoses Cervicalgia (09/18/19) Physical Therapy Treatment Note PT-OP-A Visit Information Start: 08/03/19 07:28 Freq: Status: Active Protocol: Document 09/18/19 11:15 AMB (Rec: 09/18/19 12:17 AMB [email or web address]) Out-Patient Physical Therapy Visit Information Visit Information Visit Type Treatment Note Visit Start Time 11:15 Visit Stop Time 12:00 Total Visit Minutes 40 Visit Number 11 Number of BROWNFIELD PROGRAM COORDINATOR Visits 0 PT-OP-B Current Condition Start: 08/03/19 07:28 Freq: Status: Active Protocol: Document 08/03/19 11:15 AMB (Rec: 08/03/19 13:02 AMB [email or web address]) Current Condition History of Current Condition Onset Date April 28, 2019 Current Complaints neck tightness & weakness s/p surgery radiation that impacts swallow History of Current Condition Nicole has had multiple interventions for cancer, most recently in April 2019, she underwent thyroid cancer surgery and per her report 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 She reports she had an [place] and stopped breathing twice and had to be put on a ventilator. Since then she has had difficulty swallowing, failend a MBS and had a PEG tube place. She is now doing speech therapy, and they have been working on tongue exercises since she had to previously have tongue surgery to remove a cancer tumor. She also had surgery to remove lymph nodes bilaterally at the neck. Her speech therapist recommended PT due to her difficulty performing a chin tuck due to tightness and weakness in her neck, likely due to previous radiation therapy. She does have scar tissue and radiation scars especially on the right side of her neck. She states she does have tightness and pulling in the neck, but denies specific pain. Treatment Goals Patient/Caregiver Goals Get neck more mobile/ stronger to assist in swallow Prior Functional Status Baseline Function- ADL's Independent Baseline Function- Mobility Independent Current Functional Impairments (Reported) Functional Limitations- ADL's inability to eat, swallow without aspiration Personal Factors Other Personal Factors That May Effect Dizziness related to what Therapy/Recovery sounds like orthostatics, pt feels she is not getting enough blood flow to her head with postional changes. Headaches. Neck pain. Significant cancer and surgical history see above. PT-OP-C Subjective Start: 08/03/19 07:28 Freq: Status: Active Protocol: Document 01/10/20 11:15 AMB (Rec: 09/18/19 12:17 AMB [email or web address]) OP-PT Subjective Patient Comments Patient Comments Pt state she has been able to successfully swallow yogurt and mac and cheese when very careful and turning to the right. PT-OP-F Manual Assessment Start: 08/03/19 07:28 Freq: Status: Active Protocol: Document 08/03/19 11:15 AMB (Rec: 08/03/19 16:03 AMB [email or web address]) Manual Assessments Soft Tissue Assessment Soft Tissue Mobility Assessment Significant tightess throughout right side of neck, over carotid artery, over hyoid and even down to thyroid scar. 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 Pt with radiation in 2017- proton therapy. PT-OP-J Posture/Palpation/Skin Start: 08/03/19 07:28 Freq: Status: Active Protocol: Document 08/03/19 11:15 AMB (Rec: 08/03/19 16:03 AMB [email or web address]) Posture Evaluation Comments Posture Comments Pt tends to sit/stand with a sidebent head towards the right PT-OP-K Range of Motion Start: 08/03/19 07:28 Freq: Status: Active Protocol: Document 08/03/19 11:15 AMB (Rec: 08/03/19 16:03 AMB [email or web address]) Cervical Spine Range of Motion Cervical Spine Active Degrees Testing Position Sitting Flexion 55 Extension 15 Rotation Left 65 Rotation Right 55 Lateral Flexion Left 15 Lateral Flexion Right 20 ROM Limitations Soft Tissue Tightness PT-OP-M Strength Start: 08/03/19 07:28 Freq: Status: Active Protocol: Document 08/03/19 11:15 AMB (Rec: 08/03/19 16:03 AMB [email or web address]) Cervical Spine Strength Cervical Spine Manual Muscle Testing Testing Position Supine Flexion (C1-2) 3 Fair Extension 4+ Good+ Rotation Left 4+ Good+ Rotation Right 4+ Good+ PT-OP-Q Treatments Start: 08/03/19 07:28 Freq: Status: Active Protocol: Document 09/18/19 11:15 AMB (Rec: 09/18/19 14:12 AMB [email or web address]) Therapeutic Exercises Standing Exercises scap retract/depress Reps/Minutes 10 sec x10 Comments cued neutral CS (head nod awareness) Manual Therapy Treatment Soft Tissue Mobilization 2 Body Location SCM and scalenes Body Position Hooklying Comments R with neck in neutral 1 Body Location anterior R>L neck Mobilization Type Myofascial Release Intensity/Depth Superficial Body Position Hooklying Comments especially working laterally on inferior glide, added pin and stretch with swallow and with tongue movement PT-OP-T Assessment and Plan Start: 08/03/19 07:28 Freq: Status: Active Protocol: Document 09/18/19 11:15 AMB (Rec: 09/18/19 12:17 AMB [email or web address]) Physical Therapy Assessment Assessment Summary Assessment Encouraged pt in upright posture, scapular retraction today. Manual therapy to promote fascial movement, added with neck and tongue movement. Physical Therapy Plan Next Visit Focus/Plan Next Note Type Progress Note Next Visit Plan Consider MWM with cervical rotation for SCM. Consider progression of scapular retraction, shoulder and elbow extension and shoulder rotator strengthening. Consider progression of breathing and rib and lung exercises, SC and rib recoil manual work.
--- NOTE | 2019-09-25 15:33 | PT.OTN ---
Current Diagnoses Cervicalgia (09/25/19) Physical Therapy Treatment Note PT-OP-A Visit Information Start: 08/03/19 07:28 Freq: Status: Active Protocol: Document 09/25/19 14:31 MB (Rec: 09/25/19 15:23 MB [id number]) Out-Patient Physical Therapy Visit Information Visit Information Visit Type Treatment Note Visit Start Time 14:31 Visit Stop Time 15:11 Total Visit Minutes 40 Visit Number 12 Number of VESSEL MANAGER Visits 0 PT-OP-B Current Condition Start: 08/03/19 07:28 Freq: Status: Active Protocol: Document 08/03/19 11:15 AMB (Rec: 08/03/19 13:02 AMB [email or web address]) Current Condition History of Current Condition Onset Date April 28, 2019 Current Complaints neck tightness & weakness s/p surgery radiation that impacts swallow History of Current Condition Nicole has had multiple interventions for cancer, most recently in April 2019, she underwent thyroid cancer surgery and per her report 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 She reports she had an [place] and stopped breathing twice and had to be put on a ventilator. Since then she has had difficulty swallowing, failend a MBS and had a PEG tube place. She is now doing speech therapy, and they have been working on tongue exercises since she had to previously have tongue surgery to remove a cancer tumor. She also had surgery to remove lymph nodes bilaterally at the neck. Her speech therapist recommended PT due to her difficulty performing a chin tuck due to tightness and weakness in her neck, likely due to previous radiation therapy. She does have scar tissue and radiation scars especially on the right side of her neck. She states she does have tightness and pulling in the neck, but denies specific pain. Treatment Goals Patient/Caregiver Goals Get neck more mobile/ stronger to assist in swallow Prior Functional Status Baseline Function- ADL's Independent Baseline Function- Mobility Independent Current Functional Impairments (Reported) Functional Limitations- ADL's inability to eat, swallow without aspiration Personal Factors Other Personal Factors That May Effect Dizziness related to what Therapy/Recovery sounds like orthostatics, pt feels she is not getting enough blood flow to her head with postional changes. Headaches. Neck pain. Significant cancer and surgical history see above. PT-OP-C Subjective Start: 08/03/19 07:28 Freq: Status: Active Protocol: Document 09/25/19 14:31 MB (Rec: 09/25/19 15:23 MB [id number]) OP-PT Subjective Patient Comments Patient Comments Pt con't to state that she feels her swallowing is better . She is having right neck to right ear pain and she points to scalene and SCM area. PT-OP-F Manual Assessment Start: 08/03/19 07:28 Freq: Status: Active Protocol: Document 08/03/19 11:15 AMB (Rec: 08/03/19 16:03 AMB [email or web address]) Manual Assessments Soft Tissue Assessment Soft Tissue Mobility Assessment Significant tightess throughout right side of neck, over carotid artery, over hyoid and even down to thyroid scar. 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 Pt with radiation in 2017- proton therapy. PT-OP-J Posture/Palpation/Skin Start: 08/03/19 07:28 Freq: Status: Active Protocol: Document 08/03/19 11:15 AMB (Rec: 08/03/19 16:03 AMB [email or web address]) Posture Evaluation Comments Posture Comments Pt tends to sit/stand with a sidebent head towards the right PT-OP-K Range of Motion Start: 08/03/19 07:28 Freq: Status: Active Protocol: Document 08/03/19 11:15 AMB (Rec: 08/03/19 16:03 AMB [email or web address]) Cervical Spine Range of Motion Cervical Spine Active Degrees Testing Position Sitting Flexion 55 Extension 15 Rotation Left 65 Rotation Right 55 Lateral Flexion Left 15 Lateral Flexion Right 20 ROM Limitations Soft Tissue Tightness PT-OP-M Strength Start: 08/03/19 07:28 Freq: Status: Active Protocol: Document 08/03/19 11:15 AMB (Rec: 08/03/19 16:03 AMB [email or web address]) Cervical Spine Strength Cervical Spine Manual Muscle Testing Testing Position Supine Flexion (C1-2) 3 Fair Extension 4+ Good+ Rotation Left 4+ Good+ Rotation Right 4+ Good+ PT-OP-Q Treatments Start: 08/03/19 07:28 Freq: Status: Active Protocol: Document 09/25/19 14:31 MB (Rec: 09/25/19 15:23 MB [id number]) Therapeutic Exercises Supine Exercises 4 Supine Exercise Name Self-STM MWM SCM Comments Supine, head and neck supported, added to HEP 3 Supine Exercise Name Diaphragmatic breathing and upper thoracic stretch Comments Diaphragmatic breathing isolated and with shoulder flex to expand thorax Prone Exercises Thread the needle in quadriped Comments Performed B and added to HEP to improve thoracic and cervical range Standing Exercises Use of racquet ball for self-massage intrascapular and upper traps Comments MWM with cervical rotation. Also rib mobs and CFM Other Exercises Performed all exercises and revised the following: head extension supine with pillow under thoracic and shoulders Comments Pt demonstrates pect, scalene stretches, chin tuck and scap retraction PT-OP-T Assessment and Plan Start: 08/03/19 07:28 Freq: Status: Active Protocol: Document 09/25/19 14:31 MB (Rec: 09/25/19 15:23 MB [id number]) Physical Therapy Assessment Goals Three Impairment neck strength Apparel Fashion Designer Goal (LTG) Nicole will improve her neck strength so she can perform a supine chin tuck without compensation for 10 seconds by 11/16/2019. 09/15/2019: Pt presents with fascial tightness and gentle head tilt to the right when performing this today. LTG Duration 8 weeks Two Impairment HEP Residential Goal (LTG) Nicole will be independent with a HEP for strengthening, stretching and self massage to improve ROM and decrease pain by 11/16/2019. 09/15/2019: Pt is performing current stretches, scapular retraction LTG Duration 8 weeks One Impairment ROM Short Term Goal (STG) Nicole will improve her cervical rotation ROM to 65 degrees bilaterally. 09/15/2019: Pt presents with 40 deg rotation to the right and 40 deg to the left; head rests in 3 deg left rotation STG Duration 4 weeks Apparel Fashion Designer Goal (LTG) Nicole will improve her active cervical rotation to at least 60 deg and extension to to at least 25 deg by 11/14/2019 to improve head movement with driving. 09/15/2019: Pt presents with 10 deg extension LTG Duration 8 weeks Assessment Summary Assessment Exercises added today to increase cervical and thoracic mobility and diaphragmatic engagement to help assist with visceral responses such as respiration and digestion and cervical range of motion. Upper traps self-massage MWM improves active left cervical rotation after performing. Pt states that she feels she can manage current exercise number as far as dividing them up and prioritizing what is most helpful. Physical Therapy Plan Frequency and Duration Frequency of Treatment 2x/Week Duration of Treatment 8 weeks Plan of Care Start Date 09/15/19 Plan of Care End Date 11/16/19 Therapeutic Interventions Therapeutic Interventions Home Exercise Program,Manual Therapy,Neuromuscular Re- education,Self-Care/Home Management,Soft Tissue Mobilization,Therapeutic Activities,Therapeutic Exercises Modalities Cold Pack/Ice Massage,Hot Packs Next Visit Focus/Plan Next Note Type Treatment Note Next Visit Plan Consider progression of scapular retraction, shoulder and elbow extension and shoulder rotator strengthening . Consider progression of breathing and rib and lung exercises, SC and rib recoil manual work.
--- NOTE | 2019-10-06 15:00 | PT.OTN ---
Current Diagnoses Cervicalgia (10/06/19) Physical Therapy Treatment Note PT-OP-A Visit Information Start: 08/03/19 07:28 Freq: Status: Active Protocol: Document 10/06/19 13:45 AMB (Rec: 10/06/19 16:04 AMB [email or web address]) Out-Patient Physical Therapy Visit Information Visit Information Visit Type Treatment Note Visit Start Time 13:45 Visit Stop Time 14:30 Total Visit Minutes 40 Visit Number 13 Number of CHEMICAL LABORATORY SCIENTIST Visits 0 PT-OP-B Current Condition Start: 08/03/19 07:28 Freq: Status: Active Protocol: Document 08/03/19 11:15 AMB (Rec: 08/03/19 13:02 AMB [email or web address]) Current Condition History of Current Condition Onset Date April 28, 2019 Current Complaints neck tightness & weakness s/p surgery radiation that impacts swallow History of Current Condition Nicole has had multiple interventions for cancer, most recently in April 2019, she underwent thyroid cancer surgery and per her report 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 She reports she had an MD and stopped breathing twice and had to be put on a ventilator. Since then she has had difficulty swallowing, failend a MBS and had a PEG tube place. She is now doing speech therapy, and they have been working on tongue exercises since she had to previously have tongue surgery to remove a cancer tumor. She also had surgery to remove lymph nodes bilaterally at the neck. Her speech therapist recommended PT due to her difficulty performing a chin tuck due to tightness and weakness in her neck, likely due to previous radiation therapy. She does have scar tissue and radiation scars especially on the right side of her neck. She states she does have tightness and pulling in the neck, but denies specific pain. Treatment Goals Patient/Caregiver Goals Get neck more mobile/ stronger to assist in swallow Prior Functional Status Baseline Function- ADL's Independent Baseline Function- Mobility Independent Current Functional Impairments (Reported) Functional Limitations- ADL's inability to eat, swallow without aspiration Personal Factors Other Personal Factors That May Effect Dizziness related to what Therapy/Recovery sounds like orthostatics, pt feels she is not getting enough blood flow to her head with postional changes. Headaches. Neck pain. Significant cancer and surgical history see above. PT-OP-C Subjective Start: 08/03/19 07:28 Freq: Status: Active Protocol: Document 01/28/20 13:45 AMB (Rec: 10/06/19 16:04 AMB [email or web address]) OP-PT Subjective Patient Comments Patient Comments Pt is doing well, continuing to notice nervy pain that is close to SCM. PT-OP-F Manual Assessment Start: 08/03/19 07:28 Freq: Status: Active Protocol: Document 08/03/19 11:15 AMB (Rec: 08/03/19 16:03 AMB [email or web address]) Manual Assessments Soft Tissue Assessment Soft Tissue Mobility Assessment Significant tightess throughout right side of neck, over carotid artery, over hyoid and even down to thyroid scar. 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 Pt with radiation in 2017- proton therapy. PT-OP-J Posture/Palpation/Skin Start: 08/03/19 07:28 Freq: Status: Active Protocol: Document 08/03/19 11:15 AMB (Rec: 08/03/19 16:03 AMB [email or web address]) Posture Evaluation Comments Posture Comments Pt tends to sit/stand with a sidebent head towards the right PT-OP-K Range of Motion Start: 08/03/19 07:28 Freq: Status: Active Protocol: Document 08/03/19 11:15 AMB (Rec: 08/03/19 16:03 AMB [email or web address]) Cervical Spine Range of Motion Cervical Spine Active Degrees Testing Position Sitting Flexion 55 Extension 15 Rotation Left 65 Rotation Right 55 Lateral Flexion Left 15 Lateral Flexion Right 20 ROM Limitations Soft Tissue Tightness PT-OP-M Strength Start: 08/03/19 07:28 Freq: Status: Active Protocol: Document 08/03/19 11:15 AMB (Rec: 08/03/19 16:03 AMB [email or web address]) Cervical Spine Strength Cervical Spine Manual Muscle Testing Testing Position Supine Flexion (C1-2) 3 Fair Extension 4+ Good+ Rotation Left 4+ Good+ Rotation Right 4+ Good+ PT-OP-Q Treatments Start: 08/03/19 07:28 Freq: Status: Active Protocol: Document 10/06/19 13:45 AMB (Rec: 10/07/19 09:25 AMB [id number]) Therapeutic Exercises Standing Exercises 3 Standing Exercise Name scalene stretch Reps/Minutes 30x2 2 Standing Exercise Name T band row Resistance #2 t band Reps/Minutes 2x10 Comments physical cues neutral cervical sidebend 1 Standing Exercise Name shoulder extension Resistance #2 t band Reps/Minutes 2x10 Comments vc chin tuck, shoulders back Other Exercises 1 Other Exercise Name pec stretch in corner Reps/Minutes 30x2 Manual Therapy Treatment Soft Tissue Mobilization 2 Body Location SCM and scalenes Body Position Hooklying Comments R with neck in neutral 1 Body Location anterior R>L neck Mobilization Type Myofascial Release Intensity/Depth Superficial Body Position Hooklying Comments especially working laterally on inferior glide, added pin and stretch with swallow and with tongue movement Other Other Manual Treatments manual stretching for cervical rotation, sidebending. PT-OP-T Assessment and Plan Start: 08/03/19 07:28 Freq: Status: Active Protocol: Document 10/06/19 13:45 AMB (Rec: 10/07/19 09:25 AMB [id number]) Physical Therapy Assessment Goals Three Impairment neck strength Automatic Beam Warper Tender Goal (LTG) Nicole will improve her neck strength so she can perform a supine chin tuck without compensation for 10 seconds by 11/16/2019. 09/15/2019: Pt presents with fascial tightness and gentle head tilt to the right when performing this today. LTG Duration 8 weeks Two Impairment HEP Retirement Goal (LTG) Nicole will be independent with a HEP for strengthening, stretching and self massage to improve ROM and decrease pain by 11/16/2019. 09/15/2019: Pt is performing current stretches, scapular retraction LTG Duration 8 weeks One Impairment ROM Short Term Goal (STG) Nicole will improve her cervical rotation ROM to 65 degrees bilaterally. 09/15/2019: Pt presents with 40 deg rotation to the right and 40 deg to the left; head rests in 3 deg left rotation STG Duration 4 weeks Automatic Beam Warper Tender Goal (LTG) Nicole will improve her active cervical rotation to at least 60 deg and extension to to at least 25 deg by 11/14/2019 to improve head movement with driving. 09/15/2019: Pt presents with 10 deg extension LTG Duration 8 weeks Assessment Summary Assessment Pt tolerated manual therapy and stretching well. Pt did well with rows, shoulder extension slightly more challenging, did give #2 tband for home use. Physical Therapy Plan Next Visit Focus/Plan Next Note Type Treatment Note Next Visit Plan Consider progression of scapular retraction, shoulder and elbow extension and shoulder rotator strengthening . Consider progression of breathing and rib and lung exercises, SC and rib recoil manual work.
--- NOTE | 2019-10-08 16:33 | PT.OTN ---
Current Diagnoses Cervicalgia (10/08/19) Physical Therapy Treatment Note PT-OP-A Visit Information Start: 08/03/19 07:28 Freq: Status: Active Protocol: Document 10/08/19 15:14 MB (Rec: 10/08/19 16:33 MB [id number]) Out-Patient Physical Therapy Visit Information Visit Information Visit Type Treatment Note Visit Start Time 13:15 Visit Stop Time 14:08 Total Visit Minutes 53 Visit Number 14 Number of COUNTY ENGINEER Visits 0 PT-OP-B Current Condition Start: 08/03/19 07:28 Freq: Status: Active Protocol: Document 08/03/19 11:15 AMB (Rec: 08/03/19 13:02 AMB [email or web address]) Current Condition History of Current Condition Onset Date April 28, 2019 Current Complaints neck tightness & weakness s/p surgery radiation that impacts swallow History of Current Condition Nicole has had multiple interventions for cancer, most recently in April 2019, she underwent thyroid cancer surgery and per her report 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 She reports she had an CA and stopped breathing twice and had to be put on a ventilator. Since then she has had difficulty swallowing, failend a MBS and had a PEG tube place. She is now doing speech therapy, and they have been working on tongue exercises since she had to previously have tongue surgery to remove a cancer tumor. She also had surgery to remove lymph nodes bilaterally at the neck. Her speech therapist recommended PT due to her difficulty performing a chin tuck due to tightness and weakness in her neck, likely due to previous radiation therapy. She does have scar tissue and radiation scars especially on the right side of her neck. She states she does have tightness and pulling in the neck, but denies specific pain. Treatment Goals Patient/Caregiver Goals Get neck more mobile/ stronger to assist in swallow Prior Functional Status Baseline Function- ADL's Independent Baseline Function- Mobility Independent Current Functional Impairments (Reported) Functional Limitations- ADL's inability to eat, swallow without aspiration Personal Factors Other Personal Factors That May Effect Dizziness related to what Therapy/Recovery sounds like orthostatics, pt feels she is not getting enough blood flow to her head with postional changes. Headaches. Neck pain. Significant cancer and surgical history see above. PT-OP-C Subjective Start: 08/03/19 07:28 Freq: Status: Active Protocol: Document 10/08/19 15:14 MB (Rec: 10/08/19 16:33 MB [id number]) OP-PT Subjective Patient Comments Patient Comments Pt heard from head, neck surgeon's office, Dr. Eduardo, and was told that she needs a PET regarding chest findings on CT 09/25/2019. She was previously told that fascial work on right neck was fine. Dr. Reza told her this at September appointment. Pt has ongoing stabbing pain in right ear that goes into ear and on side of neck. It is not constant. PT-OP-F Manual Assessment Start: 08/03/19 07:28 Freq: Status: Active Protocol: Document 08/03/19 11:15 AMB (Rec: 08/03/19 16:03 AMB [email or web address]) Manual Assessments Soft Tissue Assessment Soft Tissue Mobility Assessment Significant tightess throughout right side of neck, over carotid artery, over hyoid and even down to thyroid scar. 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 Pt with radiation in 2017- proton therapy. PT-OP-J Posture/Palpation/Skin Start: 08/03/19 07:28 Freq: Status: Active Protocol: Document 08/03/19 11:15 AMB (Rec: 08/03/19 16:03 AMB [email or web address]) Posture Evaluation Comments Posture Comments Pt tends to sit/stand with a sidebent head towards the right PT-OP-K Range of Motion Start: 08/03/19 07:28 Freq: Status: Active Protocol: Document 08/03/19 11:15 AMB (Rec: 08/03/19 16:03 AMB [email or web address]) Cervical Spine Range of Motion Cervical Spine Active Degrees Testing Position Sitting Flexion 55 Extension 15 Rotation Left 65 Rotation Right 55 Lateral Flexion Left 15 Lateral Flexion Right 20 ROM Limitations Soft Tissue Tightness PT-OP-M Strength Start: 08/03/19 07:28 Freq: Status: Active Protocol: Document 08/03/19 11:15 AMB (Rec: 08/03/19 16:03 AMB [email or web address]) Cervical Spine Strength Cervical Spine Manual Muscle Testing Testing Position Supine Flexion (C1-2) 3 Fair Extension 4+ Good+ Rotation Left 4+ Good+ Rotation Right 4+ Good+ PT-OP-Q Treatments Start: 08/03/19 07:28 Freq: Status: Active Protocol: Document 10/08/19 15:14 MB (Rec: 10/08/19 16:33 MB [id number]) Manual Therapy Treatment Manual Techniques Counterstrain Comments Pt agrees to Counterstrain to assess and treat fascial tension and PT treats stacks: cervical and shoulder neuro and periosteal fascial PT-OP-T Assessment and Plan Start: 08/03/19 07:28 Freq: Status: Active Protocol: Document 10/08/19 15:14 MB (Rec: 10/08/19 16:33 MB [id number]) Physical Therapy Assessment Goals Three Impairment neck strength Shelter Goal (LTG) Nicole will improve her neck strength so she can perform a supine chin tuck without compensation for 10 seconds by 11/16/2019. 09/15/2019: Pt presents with fascial tightness and gentle head tilt to the right when performing this today. LTG Duration 8 weeks Two Impairment HEP Cnc Applications Engineer Goal (LTG) Nicole will be independent with a HEP for strengthening, stretching and self massage to improve ROM and decrease pain by 11/16/2019. 09/15/2019: Pt is performing current stretches, scapular retraction LTG Duration 8 weeks One Impairment ROM Short Term Goal (STG) Nicole will improve her cervical rotation ROM to 65 degrees bilaterally. 09/15/2019: Pt presents with 40 deg rotation to the right and 40 deg to the left; head rests in 3 deg left rotation STG Duration 4 weeks Cnc Applications Engineer Goal (LTG) Nicole will improve her active cervical rotation to at least 60 deg and extension to to at least 25 deg by 11/14/2019 to improve head movement with driving. 09/15/2019: Pt presents with 10 deg extension LTG Duration 8 weeks Assessment Summary Assessment PT and pt agree to continue with Counterstrain this date given doctor aware of current findings and plan as well as PT. This PT office does leave message at Dr. Eduardo's office on nurse's line to ask her to call this PT office if any other verbal orders are needed for pt care. Pt responds well to treatment. She presents with improved cervical movement and thoracic movement after treatment. She con't to report right ear pain and presents with tension proximal attachement mastoid. Physical Therapy Plan Frequency and Duration Frequency of Treatment 2x/Week Duration of Treatment 8 weeks Plan of Care Start Date 09/15/19 Plan of Care End Date 03/09/20 Therapeutic Interventions Therapeutic Interventions Home Exercise Program,Manual Therapy,Neuromuscular Re- education,Self-Care/Home Management,Soft Tissue Mobilization,Therapeutic Activities,Therapeutic Exercises Modalities Cold Pack/Ice Massage,Hot Packs Next Visit Focus/Plan Next Note Type Treatment Note Next Visit Plan Consider progression of breathing and rib and lung exercises, SC and rib recoil manual work.
--- NOTE | 2019-10-09 08:38 | PT-OP ANOTE ---
PT calls Dr. Traore's office to request referral to Dr. Oscar Fletcher for right neck pain. Claudette, nurse, states that she will put in the referral.
--- NOTE | 2019-10-09 10:30 | PT-OP ANOTE ---
PT returns call to Dr. Traore's office. communicates that the referral to Dr. Fletcher for neck pain has been put in. PT calls pt and leaves message for her to call PT back.
--- NOTE | 2019-10-13 16:23 | PT.OTN ---
Current Diagnoses Cervicalgia (10/13/19) Physical Therapy Treatment Note PT-OP-A Visit Information Start: 08/03/19 07:28 Freq: Status: Active Protocol: Document 10/13/19 09:45 AMB (Rec: 10/13/19 15:09 AMB [id number]) Out-Patient Physical Therapy Visit Information Visit Information Visit Type Treatment Note Visit Note 02/16 Visit Start Time 09:45 Visit Stop Time 10:30 Total Visit Minutes 40 Visit Number 15 PT-OP-B Current Condition Start: 08/03/19 07:28 Freq: Status: Active Protocol: Document 08/03/19 11:15 AMB (Rec: 08/03/19 13:02 AMB [email or web address]) Current Condition History of Current Condition Onset Date April 28, 2019 Current Complaints neck tightness & weakness s/p surgery radiation that impacts swallow History of Current Condition Nicole has had multiple interventions for cancer, most recently in April 2019, she underwent thyroid cancer surgery and per her report 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 She reports she had an AR and stopped breathing twice and had to be put on a ventilator. Since then she has had difficulty swallowing, failend a MBS and had a PEG tube place. She is now doing speech therapy, and they have been working on tongue exercises since she had to previously have tongue surgery to remove a cancer tumor. She also had surgery to remove lymph nodes bilaterally at the neck. Her speech therapist recommended PT due to her difficulty performing a chin tuck due to tightness and weakness in her neck, likely due to previous radiation therapy. She does have scar tissue and radiation scars especially on the right side of her neck. She states she does have tightness and pulling in the neck, but denies specific pain. Treatment Goals Patient/Caregiver Goals Get neck more mobile/ stronger to assist in swallow Prior Functional Status Baseline Function- ADL's Independent Baseline Function- Mobility Independent Current Functional Impairments (Reported) Functional Limitations- ADL's inability to eat, swallow without aspiration Personal Factors Other Personal Factors That May Effect Dizziness related to what Therapy/Recovery sounds like orthostatics, pt feels she is not getting enough blood flow to her head with postional changes. Headaches. Neck pain. Significant cancer and surgical history see above. PT-OP-C Subjective Start: 08/03/19 07:28 Freq: Status: Active Protocol: Document 10/13/19 09:45 AMB (Rec: 10/13/19 15:09 AMB [id number]) OP-PT Subjective Patient Comments Patient Comments Pt aware that she can go to DO for dry needling, should hear back about when PET scan will be scheduled sometime this week. The PET scan is for her lungs. Results of CT in regards to ear pain were taken to tumor board at who was not concerned about it per pt report. PT-OP-F Manual Assessment Start: 08/03/19 07:28 Freq: Status: Active Protocol: Document 08/03/19 11:15 AMB (Rec: 08/03/19 16:03 AMB [email or web address]) Manual Assessments Soft Tissue Assessment Soft Tissue Mobility Assessment Significant tightess throughout right side of neck, over carotid artery, over hyoid and even down to thyroid scar. 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 Pt with radiation in 2017- proton therapy. PT-OP-J Posture/Palpation/Skin Start: 08/03/19 07:28 Freq: Status: Active Protocol: Document 08/03/19 11:15 AMB (Rec: 08/03/19 16:03 AMB [email or web address]) Posture Evaluation Comments Posture Comments Pt tends to sit/stand with a sidebent head towards the right PT-OP-K Range of Motion Start: 08/03/19 07:28 Freq: Status: Active Protocol: Document 08/03/19 11:15 AMB (Rec: 08/03/19 16:03 AMB [email or web address]) Cervical Spine Range of Motion Cervical Spine Active Degrees Testing Position Sitting Flexion 55 Extension 15 Rotation Left 65 Rotation Right 55 Lateral Flexion Left 15 Lateral Flexion Right 20 ROM Limitations Soft Tissue Tightness PT-OP-M Strength Start: 08/03/19 07:28 Freq: Status: Active Protocol: Document 08/03/19 11:15 AMB (Rec: 08/03/19 16:03 AMB [email or web address]) Cervical Spine Strength Cervical Spine Manual Muscle Testing Testing Position Supine Flexion (C1-2) 3 Fair Extension 4+ Good+ Rotation Left 4+ Good+ Rotation Right 4+ Good+ PT-OP-Q Treatments Start: 08/03/19 07:28 Freq: Status: Active Protocol: Document 10/13/19 09:45 AMB (Rec: 10/13/19 16:23 AMB [email or web address]) Therapeutic Exercises Supine Exercises 2 Supine Exercise Name open book Reps/Minutes 10x2 1 Supine Exercise Name chin nod Reps/Minutes 5 x5 Comments head nod with gentle retro press into pillow/towel Manual Therapy Treatment Soft Tissue Mobilization 3 Body Location suboccipitals and R upper trap /levator scap Mobilization Type Myofascial Release,Sustained Pressure Intensity/Depth Moderate Body Position Hooklying Other Other Manual Treatments manual stretching for cervical rotation, sidebending. PT-OP-T Assessment and Plan Start: 08/03/19 07:28 Freq: Status: Active Protocol: Document 10/13/19 09:45 AMB (Rec: 10/13/19 16:23 AMB [email or web address]) Physical Therapy Assessment Goals Three Impairment neck strength Weather Strip Mechanic Goal (LTG) Nicole will improve her neck strength so she can perform a supine chin tuck without compensation for 10 seconds by 11/16/2019. 09/15/2019: Pt presents with fascial tightness and gentle head tilt to the right when performing this today. LTG Duration 8 weeks Two Impairment HEP Group Home Goal (LTG) Nicole will be independent with a HEP for strengthening, stretching and self massage to improve ROM and decrease pain by 11/16/2019. 09/15/2019: Pt is performing current stretches, scapular retraction LTG Duration 8 weeks One Impairment ROM Short Term Goal (STG) Nicole will improve her cervical rotation ROM to 65 degrees bilaterally. 09/15/2019: Pt presents with 40 deg rotation to the right and 40 deg to the left; head rests in 3 deg left rotation STG Duration 4 weeks Weather Strip Mechanic Goal (LTG) Nicole will improve her active cervical rotation to at least 60 deg and extension to to at least 25 deg by 11/14/2019 to improve head movement with driving. 09/15/2019: Pt presents with 10 deg extension LTG Duration 8 weeks Assessment Summary Assessment Nicole was tight through her suboccipitals and R levator scap today. So far no changes to her ear pain. Did report feeling better after treatment today. Physical Therapy Plan Frequency and Duration Frequency of Treatment 2x/Week Duration of Treatment 8 weeks Plan of Care Start Date 09/15/19 Plan of Care End Date 11/16/19 Therapeutic Interventions Therapeutic Interventions Home Exercise Program,Manual Therapy,Neuromuscular Re- education,Self-Care/Home Management,Soft Tissue Mobilization,Therapeutic Activities,Therapeutic Exercises Modalities Cold Pack/Ice Massage,Hot Packs Next Visit Focus/Plan Next Note Type Treatment Note Next Visit Plan Consider progression of breathing and rib and lung exercises, SC and rib recoil manual work.
--- NOTE | 2019-10-15 10:32 | PT.OTN ---
Current Diagnoses Cervicalgia (10/15/19) Physical Therapy Treatment Note PT-OP-A Visit Information Start: 08/03/19 07:28 Freq: Status: Active Protocol: Document 10/15/19 09:43 MB (Rec: 10/15/19 09:59 MB [id number]) Out-Patient Physical Therapy Visit Information Visit Information Visit Type Treatment Note Visit Note 02/16 Visit Start Time 09:43 Visit Stop Time 10:21 Total Visit Minutes 38 Visit Number 16 PT-OP-B Current Condition Start: 08/03/19 07:28 Freq: Status: Active Protocol: Document 08/03/19 11:15 AMB (Rec: 08/03/19 13:02 AMB [email or web address]) Current Condition History of Current Condition Onset Date April 28, 2019 Current Complaints neck tightness & weakness s/p surgery radiation that impacts swallow History of Current Condition Nicole has had multiple interventions for cancer, most recently in April 2019, she underwent thyroid cancer surgery and per her report 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 She reports she had an DC and stopped breathing twice and had to be put on a ventilator. Since then she has had difficulty swallowing, failend a MBS and had a PEG tube place. She is now doing speech therapy, and they have been working on tongue exercises since she had to previously have tongue surgery to remove a cancer tumor. She also had surgery to remove lymph nodes bilaterally at the neck. Her speech therapist recommended PT due to her difficulty performing a chin tuck due to tightness and weakness in her neck, likely due to previous radiation therapy. She does have scar tissue and radiation scars especially on the right side of her neck. She states she does have tightness and pulling in the neck, but denies specific pain. Treatment Goals Patient/Caregiver Goals Get neck more mobile/ stronger to assist in swallow Prior Functional Status Baseline Function- ADL's Independent Baseline Function- Mobility Independent Current Functional Impairments (Reported) Functional Limitations- ADL's inability to eat, swallow without aspiration Personal Factors Other Personal Factors That May Effect Dizziness related to what Therapy/Recovery sounds like orthostatics, pt feels she is not getting enough blood flow to her head with postional changes. Headaches. Neck pain. Significant cancer and surgical history see above. PT-OP-C Subjective Start: 08/03/19 07:28 Freq: Status: Active Protocol: Document 10/15/19 09:43 MB (Rec: 10/15/19 09:59 MB [id number]) OP-PT Subjective Patient Comments Patient Comments Pt states that she is tired today. She is game to talk about referral to Dr. Fletcher for neck pain and tightness. Her right ear pain after taking Tyelonol. PT-OP-F Manual Assessment Start: 08/03/19 07:28 Freq: Status: Active Protocol: Document 08/03/19 11:15 AMB (Rec: 08/03/19 16:03 AMB [email or web address]) Manual Assessments Soft Tissue Assessment Soft Tissue Mobility Assessment Significant tightess throughout right side of neck, over carotid artery, over hyoid and even down to thyroid scar. 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 Pt with radiation in 2017- proton therapy. PT-OP-J Posture/Palpation/Skin Start: 08/03/19 07:28 Freq: Status: Active Protocol: Document 08/03/19 11:15 AMB (Rec: 08/03/19 16:03 AMB [email or web address]) Posture Evaluation Comments Posture Comments Pt tends to sit/stand with a sidebent head towards the right PT-OP-K Range of Motion Start: 08/03/19 07:28 Freq: Status: Active Protocol: Document 08/03/19 11:15 AMB (Rec: 08/03/19 16:03 AMB [email or web address]) Cervical Spine Range of Motion Cervical Spine Active Degrees Testing Position Sitting Flexion 55 Extension 15 Rotation Left 65 Rotation Right 55 Lateral Flexion Left 15 Lateral Flexion Right 20 ROM Limitations Soft Tissue Tightness PT-OP-M Strength Start: 08/03/19 07:28 Freq: Status: Active Protocol: Document 08/03/19 11:15 AMB (Rec: 08/03/19 16:03 AMB [email or web address]) Cervical Spine Strength Cervical Spine Manual Muscle Testing Testing Position Supine Flexion (C1-2) 3 Fair Extension 4+ Good+ Rotation Left 4+ Good+ Rotation Right 4+ Good+ PT-OP-Q Treatments Start: 08/03/19 07:28 Freq: Status: Active Protocol: Document 10/15/19 09:43 MB (Rec: 10/15/19 10:26 MB [id number]) Manual Therapy Treatment Manual Techniques STM and positional release B Comments Intraoral, pt with increased tension right compared to left Self-Care/Home Management Treatment Education Other Education Extensive education on benefits of referral to Dr. Fletcher, what dry needling is, handout provided, anatomy of SCM PT-OP-T Assessment and Plan Start: 08/03/19 07:28 Freq: Status: Active Protocol: Document 10/15/19 09:43 MB (Rec: 10/15/19 09:59 MB [id number]) Physical Therapy Assessment Goals Three Impairment neck strength Surveillance Specialist Goal (LTG) Nicole will improve her neck strength so she can perform a supine chin tuck without compensation for 10 seconds by 11/16/2019. 09/15/2019: Pt presents with fascial tightness and gentle head tilt to the right when performing this today. LTG Duration 8 weeks Two Impairment HEP Surveillance Specialist Goal (LTG) Nicole will be independent with a HEP for strengthening, stretching and self massage to improve ROM and decrease pain by 11/16/2019. 09/15/2019: Pt is performing current stretches, scapular retraction LTG Duration 8 weeks One Impairment ROM Short Term Goal (STG) Nicole will improve her cervical rotation ROM to 65 degrees bilaterally. 09/15/2019: Pt presents with 40 deg rotation to the right and 40 deg to the left; head rests in 3 deg left rotation STG Duration 4 weeks Surveillance Specialist Goal (LTG) Nicole will improve her active cervical rotation to at least 60 deg and extension to to at least 25 deg by 11/14/2019 to improve head movement with driving. 09/15/2019: Pt presents with 10 deg extension LTG Duration 8 weeks Assessment Summary Assessment Pt is going to call Dr. Fletcher's office to follow-up about referral from Dr. Traore. Con't PT for flexibility and further exercises, manual work . Physical Therapy Plan Frequency and Duration Frequency of Treatment 2x/Week Duration of Treatment 8 weeks Plan of Care Start Date 09/15/19 Plan of Care End Date 11/16/19 Therapeutic Interventions Therapeutic Interventions Home Exercise Program,Manual Therapy,Neuromuscular Re- education,Self-Care/Home Management,Soft Tissue Mobilization,Therapeutic Activities,Therapeutic Exercises Modalities Cold Pack/Ice Massage,Hot Packs Next Visit Focus/Plan Next Note Type Treatment Note Next Visit Plan Consider progression of breathing and rib and lung exercises, SC and rib recoil manual work.
--- NOTE | 2019-10-20 14:30 | PT.OTN ---
Current Diagnoses Cervicalgia (10/20/19) Physical Therapy Treatment Note PT-OP-A Visit Information Start: 08/03/19 07:28 Freq: Status: Active Protocol: Document 10/20/19 13:46 MB (Rec: 10/20/19 14:30 MB [id number]) Out-Patient Physical Therapy Visit Information Visit Information Visit Type Treatment Note Visit Start Time 13:46 Visit Stop Time 14:26 Total Visit Minutes 40 Visit Number 17 PT-OP-B Current Condition Start: 08/03/19 07:28 Freq: Status: Active Protocol: Document 08/03/19 11:15 AMB (Rec: 08/03/19 13:02 AMB [email or web address]) Current Condition History of Current Condition Onset Date April 28, 2019 Current Complaints neck tightness & weakness s/p surgery radiation that impacts swallow History of Current Condition Nicole has had multiple interventions for cancer, most recently in April 2019, she underwent thyroid cancer surgery and per her report 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 She reports she had an OK and stopped breathing twice and had to be put on a ventilator. Since then she has had difficulty swallowing, failend a MBS and had a PEG tube place. She is now doing speech therapy, and they have been working on tongue exercises since she had to previously have tongue surgery to remove a cancer tumor. She also had surgery to remove lymph nodes bilaterally at the neck. Her speech therapist recommended PT due to her difficulty performing a chin tuck due to tightness and weakness in her neck, likely due to previous radiation therapy. She does have scar tissue and radiation scars especially on the right side of her neck. She states she does have tightness and pulling in the neck, but denies specific pain. Treatment Goals Patient/Caregiver Goals Get neck more mobile/ stronger to assist in swallow Prior Functional Status Baseline Function- ADL's Independent Baseline Function- Mobility Independent Current Functional Impairments (Reported) Functional Limitations- ADL's inability to eat, swallow without aspiration Personal Factors Other Personal Factors That May Effect Dizziness related to what Therapy/Recovery sounds like orthostatics, pt feels she is not getting enough blood flow to her head with postional changes. Headaches. Neck pain. Significant cancer and surgical history see above. PT-OP-C Subjective Start: 08/03/19 07:28 Freq: Status: Active Protocol: Document 10/20/19 13:46 MB (Rec: 10/20/19 14:30 MB [id number]) OP-PT Subjective Patient Comments Patient Comments Pt states that swallowing is coming along slowly. She thinks that therapy is helpful for her neck ROM. She will hold off on consult with Dr. Fletcher until her PET this Saturday . She had an afternoon of less right ear pain after masseter work. PT-OP-F Manual Assessment Start: 08/03/19 07:28 Freq: Status: Active Protocol: Document 08/03/19 11:15 AMB (Rec: 08/03/19 16:03 AMB [email or web address]) Manual Assessments Soft Tissue Assessment Soft Tissue Mobility Assessment Significant tightess throughout right side of neck, over carotid artery, over hyoid and even down to thyroid scar. 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 Pt with radiation in 2017- proton therapy. PT-OP-J Posture/Palpation/Skin Start: 08/03/19 07:28 Freq: Status: Active Protocol: Document 08/03/19 11:15 AMB (Rec: 08/03/19 16:03 AMB [email or web address]) Posture Evaluation Comments Posture Comments Pt tends to sit/stand with a sidebent head towards the right PT-OP-K Range of Motion Start: 08/03/19 07:28 Freq: Status: Active Protocol: Document 08/03/19 11:15 AMB (Rec: 08/03/19 16:03 AMB [email or web address]) Cervical Spine Range of Motion Cervical Spine Active Degrees Testing Position Sitting Flexion 55 Extension 15 Rotation Left 65 Rotation Right 55 Lateral Flexion Left 15 Lateral Flexion Right 20 ROM Limitations Soft Tissue Tightness PT-OP-M Strength Start: 08/03/19 07:28 Freq: Status: Active Protocol: Document 08/03/19 11:15 AMB (Rec: 08/03/19 16:03 AMB [email or web address]) Cervical Spine Strength Cervical Spine Manual Muscle Testing Testing Position Supine Flexion (C1-2) 3 Fair Extension 4+ Good+ Rotation Left 4+ Good+ Rotation Right 4+ Good+ PT-OP-Q Treatments Start: 08/03/19 07:28 Freq: Status: Active Protocol: Document 10/20/19 13:46 MB (Rec: 10/20/19 14:30 MB [id number]) Manual Therapy Treatment Other Other Manual Treatments MWM B SCM and middle scalenes pt sitting and supine, performing active cervical rotation and PT performing trigger point pressure. B SC and AC mobs grade 1-2, B 1st rib mob 1-2 and improved shoulder mobility after. PT providing gentle pressure around cartilage of neck and pt performing swallow in supine. PT-OP-T Assessment and Plan Start: 08/03/19 07:28 Freq: Status: Active Protocol: Document 10/20/19 13:46 MB (Rec: 10/20/19 14:30 MB [id number]) Physical Therapy Assessment Goals Three Impairment neck strength Detention Goal (LTG) Nicole will improve her neck strength so she can perform a supine chin tuck without compensation for 10 seconds by 11/16/2019. 09/15/2019: Pt presents with fascial tightness and gentle head tilt to the right when performing this today. LTG Duration 8 weeks Two Impairment HEP Neurologist Goal (LTG) Nicole will be independent with a HEP for strengthening, stretching and self massage to improve ROM and decrease pain by 11/16/2019. 09/15/2019: Pt is performing current stretches, scapular retraction LTG Duration 8 weeks One Impairment ROM Short Term Goal (STG) Nicole will improve her cervical rotation ROM to 65 degrees bilaterally. 09/15/2019: Pt presents with 40 deg rotation to the right and 40 deg to the left; head rests in 3 deg left rotation STG Duration 4 weeks Detention Goal (LTG) Nicole will improve her active cervical rotation to at least 60 deg and extension to to at least 25 deg by 11/14/2019 to improve head movement with driving. 09/15/2019: Pt presents with 10 deg extension LTG Duration 8 weeks Assessment Summary Assessment Pt with improved cervical rotation after manual myofascial work. Ongoing assessment of thoracic mobility. Con't per POC. Physical Therapy Plan Frequency and Duration Frequency of Treatment 2x/Week Duration of Treatment 8 weeks Plan of Care Start Date 09/15/19 Plan of Care End Date 11/16/19 Therapeutic Interventions Therapeutic Interventions Home Exercise Program,Manual Therapy,Neuromuscular Re- education,Self-Care/Home Management,Soft Tissue Mobilization,Therapeutic Activities,Therapeutic Exercises Modalities Cold Pack/Ice Massage,Hot Packs Next Visit Focus/Plan Next Note Type Treatment Note Next Visit Plan Consider progression of breathing and rib and lung exercises, SC and rib recoil manual work.
--- NOTE | 2019-10-22 15:40 | PT.OTN ---
Current Diagnoses Cervicalgia (10/22/19) Physical Therapy Treatment Note PT-OP-A Visit Information Start: 08/03/19 07:28 Freq: Status: Active Protocol: Document 10/22/19 14:42 MB (Rec: 10/22/19 15:27 MB [id number]) Out-Patient Physical Therapy Visit Information Visit Information Visit Type Treatment Note Visit Note Pt arrives late to treatment Visit Start Time 14:42 Visit Stop Time 15:20 Total Visit Minutes 38 Visit Number 18 PT-OP-B Current Condition Start: 08/03/19 07:28 Freq: Status: Active Protocol: Document 08/03/19 11:15 AMB (Rec: 08/03/19 13:02 AMB [email or web address]) Current Condition History of Current Condition Onset Date April 28, 2019 Current Complaints neck tightness & weakness s/p surgery radiation that impacts swallow History of Current Condition Nicole has had multiple interventions for cancer, most recently in April 2019, she underwent thyroid cancer surgery and per her report 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 She reports she had an GA and stopped breathing twice and had to be put on a ventilator. Since then she has had difficulty swallowing, failend a MBS and had a PEG tube place. She is now doing speech therapy, and they have been working on tongue exercises since she had to previously have tongue surgery to remove a cancer tumor. She also had surgery to remove lymph nodes bilaterally at the neck. Her speech therapist recommended PT due to her difficulty performing a chin tuck due to tightness and weakness in her neck, likely due to previous radiation therapy. She does have scar tissue and radiation scars especially on the right side of her neck. She states she does have tightness and pulling in the neck, but denies specific pain. Treatment Goals Patient/Caregiver Goals Get neck more mobile/ stronger to assist in swallow Prior Functional Status Baseline Function- ADL's Independent Baseline Function- Mobility Independent Current Functional Impairments (Reported) Functional Limitations- ADL's inability to eat, swallow without aspiration Personal Factors Other Personal Factors That May Effect Dizziness related to what Therapy/Recovery sounds like orthostatics, pt feels she is not getting enough blood flow to her head with postional changes. Headaches. Neck pain. Significant cancer and surgical history see above. PT-OP-C Subjective Start: 08/03/19 07:28 Freq: Status: Active Protocol: Document 10/22/19 14:42 MB (Rec: 10/22/19 15:35 MB [id number]) OP-PT Subjective Patient Comments Patient Comments Pt is running late. She has PET scan tomorrow. PT-OP-F Manual Assessment Start: 08/03/19 07:28 Freq: Status: Active Protocol: Document 08/03/19 11:15 AMB (Rec: 08/03/19 16:03 AMB [email or web address]) Manual Assessments Soft Tissue Assessment Soft Tissue Mobility Assessment Significant tightess throughout right side of neck, over carotid artery, over hyoid and even down to thyroid scar. 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 Pt with radiation in 2017- proton therapy. PT-OP-J Posture/Palpation/Skin Start: 08/03/19 07:28 Freq: Status: Active Protocol: Document 08/03/19 11:15 AMB (Rec: 08/03/19 16:03 AMB [email or web address]) Posture Evaluation Comments Posture Comments Pt tends to sit/stand with a sidebent head towards the right PT-OP-K Range of Motion Start: 08/03/19 07:28 Freq: Status: Active Protocol: Document 08/03/19 11:15 AMB (Rec: 08/03/19 16:03 AMB [email or web address]) Cervical Spine Range of Motion Cervical Spine Active Degrees Testing Position Sitting Flexion 55 Extension 15 Rotation Left 65 Rotation Right 55 Lateral Flexion Left 15 Lateral Flexion Right 20 ROM Limitations Soft Tissue Tightness PT-OP-M Strength Start: 08/03/19 07:28 Freq: Status: Active Protocol: Document 08/03/19 11:15 AMB (Rec: 08/03/19 16:03 AMB [email or web address]) Cervical Spine Strength Cervical Spine Manual Muscle Testing Testing Position Supine Flexion (C1-2) 3 Fair Extension 4+ Good+ Rotation Left 4+ Good+ Rotation Right 4+ Good+ PT-OP-Q Treatments Start: 08/03/19 07:28 Freq: Status: Active Protocol: Document 10/22/19 14:42 MB (Rec: 10/22/19 15:35 MB [id number]) Therapeutic Exercises Supine Exercises Pool noodle--rectus abdominus stretch, abdominal drawing in, alternating shoulder flexion, B shoulder flexion reach stretch Reps/Minutes 5 reps Comments Performed all these date as well as pect stretch, provided handout for home Prone Exercises Thread the needle in quadriped Comments Performed 3 reps B, added reaching up and out for extension rotation Sitting Exercises Thoracic rotation arms out and across chest Reps/Minutes 2 each side both exercises Comments Performed both today and pt likes thread the needle better Manual Therapy Treatment Other Other Manual Treatments MWM right SCM and middle scalenes pt supine, performing active cervical rotation and PT performing trigger point pressure PT-OP-T Assessment and Plan Start: 08/03/19 07:28 Freq: Status: Active Protocol: Document 10/22/19 14:42 MB (Rec: 10/22/19 15:39 MB [id number]) Physical Therapy Assessment Goals Three Impairment neck strength Snf Goal (LTG) Nicole will improve her neck strength so she can perform a supine chin tuck without compensation for 10 seconds by 11/16/2019. 09/15/2019: Pt presents with fascial tightness and gentle head tilt to the right when performing this today. LTG Duration 8 weeks Two Impairment HEP Snf Goal (LTG) Nicole will be independent with a HEP for strengthening, stretching and self massage to improve ROM and decrease pain by 11/16/2019. 09/15/2019: Pt is performing current stretches, scapular retraction LTG Duration 8 weeks One Impairment ROM Short Term Goal (STG) Nicole will improve her cervical rotation ROM to 65 degrees bilaterally. 09/15/2019: Pt presents with 40 deg rotation to the right and 40 deg to the left; head rests in 3 deg left rotation STG Duration 4 weeks Snf Goal (LTG) Nicole will improve her active cervical rotation to at least 60 deg and extension to to at least 25 deg by 11/14/2019 to improve head movement with driving. 09/15/2019: Pt presents with 10 deg extension LTG Duration 8 weeks Assessment Summary Assessment Focused on thoracic mobility today to help open chest cavity area to aid with swallow movement and breathing . Increased tension anteriorly , greater on the right. Pt also with some fascial changes in right arm pit and she reports lymphedema. She might benefit from a lymphedema consult and pt to follow-up with oncologist office tomorrow when she goes for testing. R SCM and scalenes release 50% with manual work and then tighten again. Con't to work all around the area for mobility to help with cervical, thoracic and swallow function. Physical Therapy Plan Frequency and Duration Frequency of Treatment 2x/Week Duration of Treatment 8 weeks Plan of Care Start Date 09/15/19 Plan of Care End Date 11/16/19 Therapeutic Interventions Therapeutic Interventions Home Exercise Program,Manual Therapy,Neuromuscular Re- education,Self-Care/Home Management,Soft Tissue Mobilization,Therapeutic Activities,Therapeutic Exercises Modalities Cold Pack/Ice Massage,Hot Packs Other Referrals/Consults Referrals/Consults Recommended Possible lymphedema PT Next Visit Focus/Plan Next Note Type Treatment Note Next Visit Plan Consider progression of breathing and rib and lung exercises, SC and rib recoil manual work.
--- NOTE | 2019-10-27 14:15 | PT.OTN ---
Current Diagnoses Cervicalgia (10/27/19) Physical Therapy Treatment Note PT-OP-A Visit Information Start: 08/03/19 07:28 Freq: Status: Active Protocol: Document 10/27/19 13:00 AMB (Rec: 10/27/19 14:15 AMB [id number]) Out-Patient Physical Therapy Visit Information Visit Information Visit Type Treatment Note Visit Start Time 13:00 Visit Stop Time 13:40 Total Visit Minutes 40 Visit Number 19 PT-OP-B Current Condition Start: 08/03/19 07:28 Freq: Status: Active Protocol: Document 08/03/19 11:15 AMB (Rec: 08/03/19 13:02 AMB [email or web address]) Current Condition History of Current Condition Onset Date April 28, 2019 Current Complaints neck tightness & weakness s/p surgery radiation that impacts swallow History of Current Condition Nicole has had multiple interventions for cancer, most recently in April 2019, she underwent thyroid cancer surgery and per her report 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 She reports she had an MT and stopped breathing twice and had to be put on a ventilator. Since then she has had difficulty swallowing, failend a MBS and had a PEG tube place. She is now doing speech therapy, and they have been working on tongue exercises since she had to previously have tongue surgery to remove a cancer tumor. She also had surgery to remove lymph nodes bilaterally at the neck. Her speech therapist recommended PT due to her difficulty performing a chin tuck due to tightness and weakness in her neck, likely due to previous radiation therapy. She does have scar tissue and radiation scars especially on the right side of her neck. She states she does have tightness and pulling in the neck, but denies specific pain. Treatment Goals Patient/Caregiver Goals Get neck more mobile/ stronger to assist in swallow Prior Functional Status Baseline Function- ADL's Independent Baseline Function- Mobility Independent Current Functional Impairments (Reported) Functional Limitations- ADL's inability to eat, swallow without aspiration Personal Factors Other Personal Factors That May Effect Dizziness related to what Therapy/Recovery sounds like orthostatics, pt feels she is not getting enough blood flow to her head with postional changes. Headaches. Neck pain. Significant cancer and surgical history see above. PT-OP-C Subjective Start: 08/03/19 07:28 Freq: Status: Active Protocol: Document 10/27/19 13:00 AMB (Rec: 10/27/19 14:15 AMB [id number]) OP-PT Subjective Patient Comments Patient Comments Pt hasn't heard back from your PET scan yet. PT-OP-F Manual Assessment Start: 08/03/19 07:28 Freq: Status: Active Protocol: Document 08/03/19 11:15 AMB (Rec: 08/03/19 16:03 AMB [email or web address]) Manual Assessments Soft Tissue Assessment Soft Tissue Mobility Assessment Significant tightess throughout right side of neck, over carotid artery, over hyoid and even down to thyroid scar. 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 Pt with radiation in 2017- proton therapy. PT-OP-J Posture/Palpation/Skin Start: 08/03/19 07:28 Freq: Status: Active Protocol: Document 08/03/19 11:15 AMB (Rec: 08/03/19 16:03 AMB [email or web address]) Posture Evaluation Comments Posture Comments Pt tends to sit/stand with a sidebent head towards the right PT-OP-K Range of Motion Start: 08/03/19 07:28 Freq: Status: Active Protocol: Document 08/03/19 11:15 AMB (Rec: 08/03/19 16:03 AMB [email or web address]) Cervical Spine Range of Motion Cervical Spine Active Degrees Testing Position Sitting Flexion 55 Extension 15 Rotation Left 65 Rotation Right 55 Lateral Flexion Left 15 Lateral Flexion Right 20 ROM Limitations Soft Tissue Tightness PT-OP-M Strength Start: 08/03/19 07:28 Freq: Status: Active Protocol: Document 08/03/19 11:15 AMB (Rec: 08/03/19 16:03 AMB [email or web address]) Cervical Spine Strength Cervical Spine Manual Muscle Testing Testing Position Supine Flexion (C1-2) 3 Fair Extension 4+ Good+ Rotation Left 4+ Good+ Rotation Right 4+ Good+ PT-OP-Q Treatments Start: 08/03/19 07:28 Freq: Status: Active Protocol: Document 10/27/19 13:00 AMB (Rec: 10/27/19 14:15 AMB [id number]) Therapeutic Exercises Supine Exercises 1 Supine Exercise Name Review HEP with focus on removing redundancies in exercises Reps/Minutes 10 min, Manual Therapy Treatment Soft Tissue Mobilization 3 Body Location suboccipitals and R upper trap /levator scap Mobilization Type Myofascial Release,Sustained Pressure Intensity/Depth Moderate Body Position Hooklying 2 Body Location SCM and scalenes Body Position Hooklying Comments R with neck in neutral 1 Body Location anterior R>L neck Mobilization Type Myofascial Release Intensity/Depth Superficial Body Position Hooklying Comments especially working laterally on inferior glide, added pin and stretch with swallow and with tongue movement PT-OP-T Assessment and Plan Start: 08/03/19 07:28 Freq: Status: Active Protocol: Document 10/27/19 13:00 AMB (Rec: 10/27/19 14:15 AMB [id number]) Physical Therapy Assessment Goals Three Impairment neck strength Tractor Trailer Technician Goal (LTG) Nicole will improve her neck strength so she can perform a supine chin tuck without compensation for 10 seconds by 11/16/2019. 09/15/2019: Pt presents with fascial tightness and gentle head tilt to the right when performing this today. LTG Duration 8 weeks Two Impairment HEP Penitentiary Goal (LTG) Nicole will be independent with a HEP for strengthening, stretching and self massage to improve ROM and decrease pain by 11/16/2019. 09/15/2019: Pt is performing current stretches, scapular retraction LTG Duration 8 weeks One Impairment ROM Short Term Goal (STG) Nicole will improve her cervical rotation ROM to 65 degrees bilaterally. 09/15/2019: Pt presents with 40 deg rotation to the right and 40 deg to the left; head rests in 3 deg left rotation STG Duration 4 weeks Tractor Trailer Technician Goal (LTG) Nicole will improve her active cervical rotation to at least 60 deg and extension to to at least 25 deg by 11/14/2019 to improve head movement with driving. 09/15/2019: Pt presents with 10 deg extension LTG Duration 8 weeks Assessment Summary Assessment Nicole was noticing more R neck pain today, stating that it is stiff after sleeping whether on her side or on her back. She states it generally stretches out by noon, but encouraged in stretching throughout the morning. Pt does state that she has been taught some lymphedema massage , and that the swelling in the left arm comes and goes. Physical Therapy Plan Frequency and Duration Frequency of Treatment 2x/Week Duration of Treatment 8 weeks Plan of Care Start Date 09/15/19 Plan of Care End Date 11/16/19 Therapeutic Interventions Therapeutic Interventions Home Exercise Program,Manual Therapy,Neuromuscular Re- education,Self-Care/Home Management,Soft Tissue Mobilization,Therapeutic Activities,Therapeutic Exercises Modalities Cold Pack/Ice Massage,Hot Packs Next Visit Focus/Plan Next Note Type Treatment Note Next Visit Plan Review and condense HEP with idea of starting to wrap up as able
--- NOTE | 2019-11-03 11:18 | PT.OTN ---
Current Diagnoses Cervicalgia (11/03/19) Physical Therapy Treatment Note PT-OP-A Visit Information Start: 08/03/19 07:28 Freq: Status: Active Protocol: Document 11/03/19 10:35 MB (Rec: 11/03/19 11:17 MB [id number]) Out-Patient Physical Therapy Visit Information Visit Information Visit Type Treatment Note Visit Start Time 10:35 Visit Stop Time 11:10 Total Visit Minutes 35 Visit Number 20 PT-OP-B Current Condition Start: 08/03/19 07:28 Freq: Status: Active Protocol: Document 08/03/19 11:15 AMB (Rec: 08/03/19 13:02 AMB [email or web address]) Current Condition History of Current Condition Onset Date April 28, 2019 Current Complaints neck tightness & weakness s/p surgery radiation that impacts swallow History of Current Condition Nicole has had multiple interventions for cancer, most recently in April 2019, she underwent thyroid cancer surgery and per her report 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 She reports she had an UT and stopped breathing twice and had to be put on a ventilator. Since then she has had difficulty swallowing, failend a MBS and had a PEG tube place. She is now doing speech therapy, and they have been working on tongue exercises since she had to previously have tongue surgery to remove a cancer tumor. She also had surgery to remove lymph nodes bilaterally at the neck. Her speech therapist recommended PT due to her difficulty performing a chin tuck due to tightness and weakness in her neck, likely due to previous radiation therapy. She does have scar tissue and radiation scars especially on the right side of her neck. She states she does have tightness and pulling in the neck, but denies specific pain. Treatment Goals Patient/Caregiver Goals Get neck more mobile/ stronger to assist in swallow Prior Functional Status Baseline Function- ADL's Independent Baseline Function- Mobility Independent Current Functional Impairments (Reported) Functional Limitations- ADL's inability to eat, swallow without aspiration Personal Factors Other Personal Factors That May Effect Dizziness related to what Therapy/Recovery sounds like orthostatics, pt feels she is not getting enough blood flow to her head with postional changes. Headaches. Neck pain. Significant cancer and surgical history see above. PT-OP-C Subjective Start: 08/03/19 07:28 Freq: Status: Active Protocol: Document 11/03/19 10:35 MB (Rec: 11/03/19 11:17 MB [id number]) OP-PT Subjective Patient Comments Patient Comments Pt states that today her right neck is sore as well as her right ear. She got an appointment with Dr. Fletcher at 1130 today. She feels she is ready to d/c PT. She does think that PT was helpful. She got exercises to move better. Swallowing is off. PT-OP-F Manual Assessment Start: 08/03/19 07:28 Freq: Status: Active Protocol: Document 08/03/19 11:15 AMB (Rec: 08/03/19 16:03 AMB [email or web address]) Manual Assessments Soft Tissue Assessment Soft Tissue Mobility Assessment Significant tightess throughout right side of neck, over carotid artery, over hyoid and even down to thyroid scar. 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 Pt with radiation in 2017- proton therapy. PT-OP-J Posture/Palpation/Skin Start: 08/03/19 07:28 Freq: Status: Active Protocol: Document 08/03/19 11:15 AMB (Rec: 08/03/19 16:03 AMB [email or web address]) Posture Evaluation Comments Posture Comments Pt tends to sit/stand with a sidebent head towards the right PT-OP-K Range of Motion Start: 08/03/19 07:28 Freq: Status: Active Protocol: Document 08/03/19 11:15 AMB (Rec: 08/03/19 16:03 AMB [email or web address]) Cervical Spine Range of Motion Cervical Spine Active Degrees Testing Position Sitting Flexion 55 Extension 15 Rotation Left 65 Rotation Right 55 Lateral Flexion Left 15 Lateral Flexion Right 20 ROM Limitations Soft Tissue Tightness PT-OP-M Strength Start: 08/03/19 07:28 Freq: Status: Active Protocol: Document 08/03/19 11:15 AMB (Rec: 08/03/19 16:03 AMB [email or web address]) Cervical Spine Strength Cervical Spine Manual Muscle Testing Testing Position Supine Flexion (C1-2) 3 Fair Extension 4+ Good+ Rotation Left 4+ Good+ Rotation Right 4+ Good+ PT-OP-Q Treatments Start: 08/03/19 07:28 Freq: Status: Active Protocol: Document 11/03/19 10:35 MB (Rec: 11/03/19 11:17 MB [id number]) Manual Therapy Treatment Other Other Manual Treatments MWM right SCM and middle scalenes pt supine, performing active cervical rotation and PT performing trigger point pressure PT-OP-T Assessment and Plan Start: 08/03/19 07:28 Freq: Status: Active Protocol: Document 11/03/19 10:35 MB (Rec: 11/03/19 11:17 MB [id number]) Physical Therapy Assessment Goals Three Impairment neck strength Shelter Goal (LTG) Nicole will improve her neck strength so she can perform a supine chin tuck without compensation for 10 seconds by 11/16/2019. 09/15/2019: Pt presents with fascial tightness and gentle head tilt to the right when performing this today. 11/03/2019: Pt performs chin tuck today with cues LTG Duration 8 weeks Two Impairment HEP Reservoir Caretaker Goal (LTG) Nicole will be independent with a HEP for strengthening, stretching and self massage to improve ROM and decrease pain by 11/16/2019. 11/03/2019: Pt has been performing progressive HEP with I LTG Duration 8 weeks One Impairment ROM Short Term Goal (STG) Nicole will improve her cervical rotation ROM to 65 degrees bilaterally. 09/15/2019: Pt presents with 40 deg rotation to the right and 40 deg to the left; head rests in 3 deg left rotation STG Duration 4 weeks Reservoir Caretaker Goal (LTG) Nicole will improve her active cervical rotation to at least 60 deg and extension to to at least 25 deg by 11/14/2019 to improve head movement with driving. 11/03/2019: Cervical extension to 15 deg; right cervical rotation to 45 deg and left to 25 deg LTG Duration 8 weeks Assessment Summary Assessment Pt has been performing progressive HEP. Her cervical range and chin tuck have improved. Her PET CT was positive for changes at lung site, possible mets and she will have bx in [place]. Will d/c PT at this time. Pt to follow-up with Dr. Fletcher today.
== END 2019-11-05 12:53 ==
LOC: PHYS 10:30
PROVIDERS: PCP Family Medicine; Visit Provider Family Medicine
DX: M54.2 Cervicalgia (principal)
CPT/HCPCS: 97110; 97140; 97162; 97535

== ENCOUNTER 2019-11-09 14:00 | Outpatient (RCR) | payer MEDICARE, OTHER, SELFPAY | END 2020-02-18 14:59 | LOC: CAR 14:00 | PROVIDERS: PCP Family Medicine; Visit Provider Family Medicine | DX: Z95.1 Presence of aortocoronary bypass graft (principal) | CPT/HCPCS: 93798 ==